=== PATIENT | female | born 1955 | race Caucasian/White ===

== ENCOUNTER 2020-06-14 10:30 | Outpatient (RCR) | payer MEDICARE, SELFPAY ==
[2020-05-24 10:33] VITALS: BP 156/90; PULSE 87; RESP 18; TEMP 36.6; BMI 53.8
--- NOTE | 2020-05-24 11:05 | PCM.WC.HP ---
(1) Traumatic open wound of left lower leg Status: Acute Current Visit: Yes Qualifiers: Encounter type: initial encounter Qualified Code(s): S81.802A - Unspecified open wound, left lower leg, initial encounter Code(s): S81.802A - Unspecified open wound, left lower leg, initial encounter (2) Traumatic hematoma of left lower leg Status: Acute Current Visit: Yes Qualifiers: Encounter type: initial encounter Qualified Code(s): S80.12XA - Contusion of left lower leg, initial encounter Code(s): S80.12XA - Contusion of left lower leg, initial encounter (3) Rheumatoid arthritis Status: Acute Current Visit: Yes Qualifiers: Rheumatoid arthritis location: unspecified site Code(s): M06.9 - Rheumatoid arthritis, unspecified (4) Nonhealing nonsurgical wound Status: Acute Current Visit: Yes Code(s): T14.8XXA - Other injury of unspecified body region, initial encounter (5) Morbid obesity Status: Acute Current Visit: Yes Code(s): E66.01 - Morbid (severe) obesity due to excess calories (6) Cellulitis of left lower extremity without foot Status: Acute Current Visit: Yes Code(s): L03.116 - Cellulitis of left lower limb (7) Edema of left lower leg Status: Acute Current Visit: Yes Code(s): R60.0 - Localized edema History of Present Illness Date of Service: 05/24/20 Chief Complaint: Follow-up open wound left lower leg History of Wound: 64-year-old white female that was pushing a chair and the chair hit her left lynch area about 5 weeks ago. Developed a huge hematoma and then blistering around with some cellulitis. Seen by her family doctor and they opened the hematoma and all the blisters. Patient was started on Augmentin and covered with gauze. Patient is here because wound is not healing properly Past Medical History Past Medical History: Rheumatoid arthritis hypertension morbid obesity Allergies/Adverse Reactions: Allergies No Known Allergies Allergy (Verified 05/24/20 10:23) Home Medications: Ambulatory Orders Medication Instructions Recorded Celecoxib [Celebrex] 200 mg PO DAILY 05/24/20 Esomeprazole Mag Trihydrate 20 mg PO DAILY 05/24/20 [Nexium] Folic Acid 1 mg PO DAILY 05/24/20 Furosemide [Lasix] 20 mg PO DAILY 05/24/20 Hydrochlorothiazide [Hctz] 25 mg PO DAILY 05/24/20 Hydroxychloroquine [Plaquenil] 200 mg PO DAILYCM 05/24/20 Lisinopril 5 mg PO DAILY 05/24/20 Methotrexate 2.5 mg PO Q7D 05/24/20 Review of Systems Constitutional: Denies: Chills, Fever Eyes: Denies: Blurred vision, Drainage, Pain HEENT: Denies: Difficulty Hearing, Difficulty Swallowing, Sore Throat, Visual Changes Cardiovascular: Denies: Chest Pain, Palpitations, Syncope Respiratory: Denies: Cough, Shortness of Breath Gastrointestinal: Denies: Abdominal Pain, Nausea, Vomiting Genitourinary: Denies: Dysuria, Frequency Musculoskeletal: Denies: Joint Pain, Muscle pain Skin: Reports: - - Left lower leg wound. Denies: Jaundice, Rash Neurological: Denies: Balance problems, Change in Speech, Difficulty swallowing, Focal weakness Psychiatric: Denies: Anxiety, Depression Endocrine: Denies: Change in Body Habitus Hematologic/ Lymphatic: Denies: Adenopathy - Physical Exam Vital Signs Temp Pulse Resp BP 98 F 87 18 156/90 H 05/24/20 10:33 05/24/20 10:33 05/24/20 10:33 05/24/20 10:33 General: Oriented x3, Cooperative, Well developed HEENT: Atraumatic, PERRLA Oral: Moist Mucosa Neck: Supple, No JVD Lungs: Clear to auscultation, Normal air movement Cardiovascular: Regular rate, Regular Rhythm Abdomen: Bowel Sounds Present, Soft, Non Tender, No Hepato-splenomegaly Extremities: No clubbing, Edema Skin: Ulcer/ Wound - Left lower lynch wound due to emetic hematoma that was opened by family doctor now open wound with a satellite open wound area, Rash Present Wound Measurements and Assessment WC - Nurse 1 - General Ulcer Measurement Start: 05/24/20 10:22 Freq: Status: Active Protocol: Activity Type Activity Date Activity User E-Sign Co-Sign Detail Recorded Client Recorded Date Recorded By Document 05/24/20 10:33 RB [id number] 05/24/20 10:37 RB 05/24/20 10:33 Wound Center Nurse 1 [Ulcer Assessment] 1. L lynch -Combined with other wound No -Current Size (cm) - Length 6 -Current Size (cm) - Width 5.4 -Current Size (cm) - Depth 0.2 -Total Square Cm 32.4 -Photo Taken Yes -Tunneling No -Undermining/Tunneling No -Circular Undermining No -Exudate Amt Small -Exudate Type Serosanguineous -Wound Margin Flat & Intact -Granulation Amt Medium (34-66%) -Granulation Quality Red -Slough/Fibrin Yes -Necrosis Amt Medium (34-66%) -Necrotic Tissue Type Adherent Slough -Structure Exposed N/A -Texture (Geraldine-wound Skin Appearance) Assessed -Moisture (Geraldine-wound Skin Appearance Assessed ) -Color (Geraldine-wound Skin Appearance) Hemosiderin Staining -Temperature (Geraldine-wound Skin No Abnormality Appearance) (Pt Warm) -Tenderness on Palpation (Geraldine-wound No Skin Appearance) -Ulcer Cleansing Wound Cleanser -Foul Odor after Cleansing No -Anesthetic Used 4% Lidocaine Solution [Edema Assessment] -Lower Limb Edema Present Yes -Right Calf (cm) 45 -Right Ankle (cm) 28 -Left Calf (cm) 49.5 -Left Ankle (cm) 30.2 WC - Nurse 2 - General Ulcer CM Notes Start: 05/24/20 10:22 Freq: Status: Active Protocol: Activity Type Activity Date Activity User E-Sign Co-Sign Detail Recorded Client Recorded Date Recorded By Document 05/24/20 10:48 MW [id number] 05/24/20 10:53 MW 05/24/20 10:48 Wound Center Nurse 2 [Procedure/Treatment] 1. L lynch -Time 10:50 -Correct Patient Yes -Correct Side, Site, Position Yes -Correct Procedure Yes -Procedure Performed Yes -Type of Procedure Debridement -Clinical Debridement Subcutaneous -Post Debridement Size (cm) - Length 6.2 -Post Debridement Size (cm) - Width 5.2 -Post Debridement Size (cm) - Depth 0.3 -Total Square Cm 32.24 -Wound/Ulcer Outcome Not Healed -Ulcer Cleansing Rinsed/ Irrigated with Saline -Foul Odor after Cleansing No -Bioengineered Tissue No -Bleeding Controlled with Pressure -Offloading No -Treatment Response Procedure Tolerated Well [See Physician Procedure note for Specifics] Pain Scale: 0-10 Numeric [Pain] -Is Patient Pain Free? Yes Musculoskeletal: No Tenderness to Palpation of Joints or Extremities Lymphatic: No Cervical, Supraclavicular, or Inguinal Adenopathy Neurological: Cranial nerves II-XII grossly intact, Neuro grossly intact Psych/Mental Status: Normal Affect, Appropriate Debridement Note Post-Debridement Measurements/Treatment WC - Nurse 2 - General Ulcer CM Notes Start: 05/24/20 10:22 Freq: Status: Active Protocol: Activity Type Activity Date Activity User E-Sign Co-Sign Detail Recorded Client Recorded Date Recorded By Document 05/24/20 10:48 MW [id number] 05/24/20 10:53 MW 05/24/20 10:48 Wound Center Nurse 2 1. L lynch -Time 10:50 -Correct Patient Yes -Correct Side, Site, Position Yes -Correct Procedure Yes -Procedure Performed Yes -Type of Procedure Debridement -Clinical Debridement Subcutaneous -Post Debridement Size (cm) - Length 6.2 -Post Debridement Size (cm) - Width 5.2 -Post Debridement Size (cm) - Depth 0.3 -Total Square Cm 32.24 -Wound/Ulcer Outcome Not Healed -Ulcer Cleansing Rinsed/ Irrigated with Saline -Foul Odor after Cleansing No -Bioengineered Tissue No -Bleeding Controlled with Pressure -Offloading No -Treatment Response Procedure Tolerated Well Pain Scale: 0-10 Numeric Is Patient Pain Free? Yes Wound debrided: Left lynch wound cluster Type of Debridement: Excisional debridement Anesthesia Used: 5% Lidocaine Gel Depth: Down to and including healthy tissue, in the subcutaneous layer Percentage of wound debrided: 100 Instrument Used: 7mm curette Tissue Removed: Slough and fibrin and devitalized tissue Severity: Limited To Skin Breakdown Amount of bleeding with debridement: Mild Bleeding Controlled with: Compression and gauze Patient tolerated procedure well Assessment/Plan Aerobic and anaerobic cultures obtained Active Problems Traumatic open wound of left lower leg (Acute) Traumatic hematoma of left lower leg (Acute) Rheumatoid arthritis (Acute) Nonhealing nonsurgical wound (Acute) Morbid obesity (Acute) Cellulitis of left lower extremity without foot (Acute) Edema of left lower leg (Acute) Assessment: Traumatic hematoma with blisters. Nonhealing open wound. Morbid obesity. Rheumatoid arthritis. Infected wound. Cellulitis Plan: Wash leg with antibacterial soap clean toes and toenails well. Aquacel extra to wound base moistened cover with Adaptic gauze tape. Apply Nestor wrap to left lower leg from toes to knee. We will call with results of cultures. Follow-up in 1 week
[2020-05-31 10:25] VITALS: BP 143/62; PULSE 90; RESP 18; TEMP 36.6; BMI 53.8
--- NOTE | 2020-05-31 11:43 | PCM.WC.PN ---
(1) Traumatic open wound of left lower leg Status: Acute Current Visit: Yes Qualifiers: Encounter type: initial encounter Qualified Code(s): S81.802A - Unspecified open wound, left lower leg, initial encounter Code(s): S81.802A - Unspecified open wound, left lower leg, initial encounter (2) Traumatic hematoma of left lower leg Status: Acute Current Visit: Yes Qualifiers: Encounter type: subsequent encounter Qualified Code(s): S80.12XD - Contusion of left lower leg, subsequent encounter Code(s): S80.12XA - Contusion of left lower leg, initial encounter (3) Rheumatoid arthritis Status: Acute Current Visit: Yes Qualifiers: Rheumatoid arthritis location: unspecified site Code(s): M06.9 - Rheumatoid arthritis, unspecified (4) Nonhealing nonsurgical wound Status: Acute Current Visit: Yes Code(s): T14.8XXA - Other injury of unspecified body region, initial encounter (5) Morbid obesity Status: Acute Current Visit: Yes Code(s): E66.01 - Morbid (severe) obesity due to excess calories (6) Cellulitis of left lower extremity without foot Status: Acute Current Visit: Yes Code(s): L03.116 - Cellulitis of left lower limb (7) Edema of left lower leg Status: Acute Current Visit: Yes Code(s): R60.0 - Localized edema Type of Wound Date of Service: 05/31/20 Chief Complaint: Follow-up open wound left lower leg History of Wound: 64-year-old white female that was pushing a chair and the chair hit her left lynch area about 5 weeks ago. Developed a huge hematoma and then blistering around with some cellulitis. Seen by her family doctor and they opened the hematoma and all the blisters. Patient was started on Augmentin and covered with gauze. Patient is here because wound is not healing properly Progress of Wound: Cultures came back staph aureus and anaerobes cocci so patient was started on clindamycin and metronidazole. Seeing an improvement tolerating her medications well. We will continue the Hydrofiber and Adaptic with gauze dressing compression and follow-up again in another week. - Physical Exam Vital Signs Temp Pulse Resp BP 97.9 F 90 18 143/62 H 05/31/20 10:25 05/31/20 10:25 05/31/20 10:25 05/31/20 10:25 General: Oriented x3, Cooperative, Well developed HEENT: Atraumatic, PERRLA Oral: Moist Mucosa Neck: Supple, No JVD Lungs: Clear to auscultation, Normal air movement Cardiovascular: Regular rate, Regular Rhythm Abdomen: Bowel Sounds Present, Soft, Non Tender, No Hepato-splenomegaly Extremities: No clubbing, No edema Skin: Ulcer/ Wound - Traumatic wound left lynch area Wound Measurements and Assessment WC - Nurse 1 - General Ulcer Measurement Start: 05/24/20 10:22 Freq: Status: Active Protocol: Activity Type Activity Date Activity User E-Sign Co-Sign Detail Recorded Client Recorded Date Recorded By Document 05/31/20 10:25 CS [id number] 05/31/20 10:33 CS 05/31/20 10:25 Wound Center Nurse 1 [Ulcer Assessment] 1. L lynch cluster -Combined with other wound No -Current Size (cm) - Length 6.5 -Current Size (cm) - Width 5.9 -Current Size (cm) - Depth 0.3 -Total Square Cm 38.35 -Photo Taken No -Epithelialization None Present -Tunneling No -Undermining/Tunneling No -Circular Undermining No -Exudate Amt Large -Exudate Type Serous -Wound Margin Distinct, Outline Attached -Granulation Amt Large (67-100%) -Granulation Quality Red -Slough/Fibrin Yes -Necrosis Amt None Present (0 %) -Necrotic Tissue Type Adherent Slough -Structure Exposed N/A -Texture (Geraldine-wound Skin Appearance) No Abnormality, Friable, Scarring -Moisture (Geraldine-wound Skin Appearance No Abnormality, ) Assessed -Color (Geraldine-wound Skin Appearance) Hemosiderin Staining -Temperature (Geraldine-wound Skin No Abnormality Appearance) (Pt Warm) -Tenderness on Palpation (Geraldine-wound No Skin Appearance) -Ulcer Cleansing Rinsed/ Irrigated with Saline -Foul Odor after Cleansing No -Anesthetic Used 4% Lidocaine Solution [Edema Assessment] -Lower Limb Edema Present Yes -Left Calf (cm) 45 -Left Ankle (cm) 28.5 WC - Nurse 2 - General Ulcer CM Notes Start: 05/24/20 10:22 Freq: Status: Active Protocol: Activity Type Activity Date Activity User E-Sign Co-Sign Detail Recorded Client Recorded Date Recorded By Document 05/31/20 10:44 MW [id number] 05/31/20 10:47 MW 05/31/20 10:44 Wound Center Nurse 2 [Procedure/Treatment] Linette lynch cluster -Time 10:46 -Correct Patient Yes -Correct Side, Site, Position Yes -Correct Procedure Yes -Procedure Performed Yes -Type of Procedure Debridement -Clinical Debridement Subcutaneous -Post Debridement Size (cm) - Length 6.2 -Post Debridement Size (cm) - Width 5.2 -Post Debridement Size (cm) - Depth 0.3 -Total Square Cm 32.24 -Wound/Ulcer Outcome Not Healed -Ulcer Cleansing Rinsed/ Irrigated with Saline -Foul Odor after Cleansing No -Bioengineered Tissue No -Bleeding Controlled with Pressure -Offloading No -Treatment Response Procedure Tolerated Well [See Physician Procedure note for Specifics] Pain Scale: 0-10 Numeric [Pain] -Is Patient Pain Free? Yes Musculoskeletal: No Tenderness to Palpation of Joints or Extremities Lymphatic: No Cervical, Supraclavicular, or Inguinal Adenopathy Neurological: Cranial nerves II-XII grossly intact, Neuro grossly intact Psych/Mental Status: Normal Affect, Appropriate Debridement Note Post-Debridement Measurements/Treatment WC - Nurse 2 - General Ulcer CM Notes Start: 05/24/20 10:22 Freq: Status: Active Protocol: Activity Type Activity Date Activity User E-Sign Co-Sign Detail Recorded Client Recorded Date Recorded By Document 05/24/20 10:48 MW [id number] 05/24/20 10:53 MW Document 05/31/20 10:44 MW [id number] 05/31/20 10:47 MW 05/24/20 05/31/20 10:48 10:44 Wound Center Nurse 2 Linette lynch cluster -Time 10:50 10:46 -Correct Patient Yes Yes -Correct Side, Site, Position Yes Yes -Correct Procedure Yes Yes -Procedure Performed Yes Yes -Type of Procedure Debridement Debridement -Clinical Debridement Subcutaneous Subcutaneous -Post Debridement Size (cm) - Length 6.2 6.2 -Post Debridement Size (cm) - Width 5.2 5.2 -Post Debridement Size (cm) - Depth 0.3 0.3 -Total Square Cm 32.24 32.24 -Wound/Ulcer Outcome Not Healed Not Healed -Ulcer Cleansing Rinsed/ Rinsed/ Irrigated with Irrigated with Saline Saline -Foul Odor after Cleansing No No -Bioengineered Tissue No No -Bleeding Controlled with Pressure Pressure -Offloading No No -Treatment Response Procedure Procedure Tolerated Well Tolerated Well Pain Scale: 0-10 Numeric Is Patient Pain Free? Yes Yes Wound debrided: Left lynch wound Type of Debridement: Excisional debridement Anesthesia Used: 5% Lidocaine Gel Depth: Down to and including healthy tissue, in the subcutaneous layer Percentage of wound debrided: 100 Instrument Used: 5mm curette Tissue Removed: Fibrin devitalized tissue some slough Severity: Limited To Skin Breakdown Amount of bleeding with debridement: Mild Bleeding Controlled with: Compression and gauze Patient tolerated procedure well Assessment/Plan Active Problems Traumatic open wound of left lower leg (Acute) Traumatic hematoma of left lower leg (Acute) Rheumatoid arthritis (Acute) Nonhealing nonsurgical wound (Acute) Morbid obesity (Acute) Cellulitis of left lower extremity without foot (Acute) Edema of left lower leg (Acute) Assessment: Traumatic hematoma with blisters. Nonhealing open wound. Morbid obesity. Rheumatoid arthritis. Infected wound. Cellulitis Plan: Wash leg with antibacterial soap clean toes and toenails well. Fibrocol to wound base moistened cover with Adaptic gauze tape. Apply Nestor wrap to left lower leg from toes to k. clinamycin 150 mg 3 times daily for 14 days. Metronidazole 250 mg ID for 14 days. Follow-up in 1 week
[2020-06-07 10:31] VITALS: BP 115/73; PULSE 92; RESP 20; TEMP 36.6; BMI 53.8
--- NOTE | 2020-06-07 12:05 | PCM.WC.PN ---
(1) Traumatic open wound of left lower leg Status: Acute Current Visit: Yes Qualifiers: Encounter type: initial encounter Qualified Code(s): S81.802A - Unspecified open wound, left lower leg, initial encounter Code(s): S81.802A - Unspecified open wound, left lower leg, initial encounter (2) Traumatic hematoma of left lower leg Status: Acute Current Visit: Yes Qualifiers: Encounter type: subsequent encounter Qualified Code(s): S80.12XD - Contusion of left lower leg, subsequent encounter Code(s): S80.12XA - Contusion of left lower leg, initial encounter (3) Rheumatoid arthritis Status: Acute Current Visit: Yes Qualifiers: Rheumatoid arthritis location: unspecified site Code(s): M06.9 - Rheumatoid arthritis, unspecified (4) Nonhealing nonsurgical wound Status: Acute Current Visit: Yes Code(s): T14.8XXA - Other injury of unspecified body region, initial encounter (5) Morbid obesity Status: Acute Current Visit: Yes Code(s): E66.01 - Morbid (severe) obesity due to excess calories (6) Cellulitis of left lower extremity without foot Status: Acute Current Visit: Yes Code(s): L03.116 - Cellulitis of left lower limb (7) Edema of left lower leg Status: Acute Current Visit: Yes Code(s): R60.0 - Localized edema Type of Wound Date of Service: 06/07/20 Chief Complaint: Follow-up open wound left lower leg History of Wound: 64-year-old white female that was pushing a chair and the chair hit her left lynch area about 5 weeks ago. Developed a huge hematoma and then blistering around with some cellulitis. Seen by her family doctor and they opened the hematoma and all the blisters. Patient was started on Augmentin and covered with gauze. Patient is here because wound is not healing properly Progress of Wound: Cultures came back staph aureus and anaerobes cocci so patient was started on clindamycin and metronidazole. Seeing an improvement tolerating her medications well. We will continue the Hydrofiber and Adaptic with gauze dressing compression and follow-up again in another week. - Physical Exam Vital Signs Temp Pulse Resp BP 98 F 92 20 H 115/73 06/07/20 10:31 06/07/20 10:31 06/07/20 10:31 06/07/20 10:31 General: Oriented x3, Cooperative, Well developed HEENT: Atraumatic, PERRLA Oral: Moist Mucosa Neck: Supple, No JVD Lungs: Clear to auscultation, Normal air movement Cardiovascular: Regular rate, Regular Rhythm Abdomen: Bowel Sounds Present, Soft, Non Tender, No Hepato-splenomegaly Extremities: No clubbing, No edema Skin: Ulcer/ Wound - Left lynch wound Wound Measurements and Assessment WC - Nurse 1 - General Ulcer Measurement Start: 05/24/20 10:22 Freq: Status: Active Protocol: Activity Type Activity Date Activity User E-Sign Co-Sign Detail Recorded Client Recorded Date Recorded By Document 06/07/20 10:31 [facility] [id number] 06/07/20 10:49 [facility] 06/07/20 10:31 Wound Center Nurse 1 [Ulcer Assessment] 1. L lynch cluster -Combined with other wound No -Current Size (cm) - Length 5.5 -Current Size (cm) - Width 4.6 -Current Size (cm) - Depth 0.4 -Total Square Cm 25.30 -Photo Taken No -Epithelialization Small 1-33% -Tunneling No -Undermining/Tunneling No -Circular Undermining No -Exudate Amt Medium -Exudate Type Serosanguineous -Wound Margin Distinct, Outline Attached -Granulation Amt Large (67-100%) -Granulation Quality Red -Slough/Fibrin Yes -Necrosis Amt Small (1-33%) -Texture (Geraldine-wound Skin Appearance) Assessed, Scarring -Moisture (Geraldine-wound Skin Appearance Assessed ) -Color (Geraldine-wound Skin Appearance) Assessed, Erythema -Temperature (Geraldine-wound Skin No Abnormality Appearance) (Pt Warm) -Tenderness on Palpation (Geraldine-wound No Skin Appearance) -Ulcer Cleansing Rinsed/ Irrigated with Saline -Foul Odor after Cleansing No -Anesthetic Used 5% Lidocaine Gel [Edema Assessment] -Lower Limb Edema Present Yes -Left Calf (cm) 49 -Left Ankle (cm) 28.6 - Nurse 2 - General Ulcer CM Notes Start: 05/24/20 10:22 Freq: Status: Active Protocol: Activity Type Activity Date Activity User E-Sign Co-Sign Detail Recorded Client Recorded Date Recorded By Document 06/07/20 11:00 [id number] 06/07/20 11:04 PL 06/07/20 11:00 Wound Center Nurse 2 [Procedure/Treatment] Linette lynch cluster -Time 10:59 -Correct Patient Yes -Correct Side, Site, Position Yes -Correct Procedure Yes -Procedure Performed Yes -Type of Procedure Debridement -Clinical Debridement Subcutaneous -Post Debridement Size (cm) - Length 5.3 -Post Debridement Size (cm) - Width 4.5 -Post Debridement Size (cm) - Depth 0.3 -Total Square (cm) 23.85 -Wound/Ulcer Outcome Not Healed -Ulcer Cleansing Rinsed/ Irrigated with Saline -Foul Odor after Cleansing No -Bleeding Controlled with Pressure -Treatment Response Procedure Tolerated Well [See Physician Procedure note for Specifics] Pain Scale: 0-10 Numeric [Pain] -Is Patient Pain Free? Yes Musculoskeletal: No Tenderness to Palpation of Joints or Extremities Lymphatic: No Cervical, Supraclavicular, or Inguinal Adenopathy Neurological: Cranial nerves II-XII grossly intact, Neuro grossly intact Psych/Mental Status: Normal Affect, Appropriate Debridement Note Post-Debridement Measurements/Treatment WC - Nurse 2 - General Ulcer CM Notes Start: 05/24/20 10:22 Freq: Status: Active Protocol: Activity Type Activity Date Activity User E-Sign Co-Sign Detail Recorded Client Recorded Date Recorded By Document 05/24/20 10:48 MW [id number] 05/24/20 10:53 MW Document 05/31/20 10:44 MW [id number] 05/31/20 10:47 MW Document 06/07/20 11:00 [id number] 06/07/20 11:04 05/24/20 05/31/20 06/07/20 10:48 10:44 11:00 Wound Center Nurse 2 Linette lynch cluster -Time 10:50 10:46 10:59 -Correct Patient Yes Yes Yes -Correct Side, Site, Position Yes Yes Yes -Correct Procedure Yes Yes Yes -Procedure Performed Yes Yes Yes -Type of Procedure Debridement Debridement Debridement -Clinical Debridement Subcutaneous Subcutaneous Subcutaneous -Post Debridement Size (cm) - Length 6.2 6.2 5.3 -Post Debridement Size (cm) - Width 5.2 5.2 4.5 -Post Debridement Size (cm) - Depth 0.3 0.3 0.3 -Total Square (cm) 32.24 32.24 23.85 -Wound/Ulcer Outcome Not Healed Not Healed Not Healed -Ulcer Cleansing Rinsed/ Rinsed/ Rinsed/ Irrigated with Irrigated with Irrigated with Saline Saline Saline -Foul Odor after Cleansing No No No -Bioengineered Tissue No No -Bleeding Controlled with Pressure Pressure Pressure -Offloading No No -Treatment Response Procedure Procedure Procedure Tolerated Well Tolerated Well Tolerated Well Pain Scale: 0-10 Numeric Is Patient Pain Free? Yes Yes Yes Wound debrided: Lynch wound Type of Debridement: Excisional debridement Anesthesia Used: 5% Lidocaine Gel Depth: Down to and including healthy tissue, in the subcutaneous layer Percentage of wound debrided: 100 Instrument Used: 5mm curette Tissue Removed: Fibrin and slough Severity: Limited To Skin Breakdown Amount of bleeding with debridement: Mild Bleeding Controlled with: Compression and gauze Patient tolerated procedure well Assessment/Plan Active Problems Traumatic open wound of left lower leg (Acute) Traumatic hematoma of left lower leg (Acute) Rheumatoid arthritis (Acute) Nonhealing nonsurgical wound (Acute) Morbid obesity (Acute) Cellulitis of left lower extremity without foot (Acute) Edema of left lower leg (Acute) Assessment: Traumatic hematoma with blisters. Nonhealing open wound. Morbid obesity. Rheumatoid arthritis. Infected wound. Cellulitis Plan: Wash leg with antibacterial soap clean toes and toenails well. Fibrocol to wound base moistened cover with Adaptic gauze tape. Apply Nestor wrap to left lower leg from toes to knees. Continue clinamycin 150 mg 3 times daily for 14 days. Continue metronidazole 250 mg ID for 14 days. Follow-up in 1 week
[2020-06-14 10:35] VITALS: BP 154/50; PULSE 89; RESP 18; TEMP 35.8; BMI 53.8
--- NOTE | 2020-06-14 11:23 | PCM.WC.PN ---
(1) Traumatic open wound of left lower leg Status: Acute Current Visit: Yes Qualifiers: Encounter type: subsequent encounter Qualified Code(s): S81.802D - Unspecified open wound, left lower leg, subsequent encounter Code(s): S81.802A - Unspecified open wound, left lower leg, initial encounter (2) Traumatic hematoma of left lower leg Status: Acute Current Visit: Yes Qualifiers: Encounter type: subsequent encounter Qualified Code(s): S80.12XD - Contusion of left lower leg, subsequent encounter Code(s): S80.12XA - Contusion of left lower leg, initial encounter (3) Rheumatoid arthritis Status: Acute Current Visit: Yes Qualifiers: Rheumatoid arthritis location: unspecified site Code(s): M06.9 - Rheumatoid arthritis, unspecified (4) Nonhealing nonsurgical wound Status: Acute Current Visit: Yes Code(s): T14.8XXA - Other injury of unspecified body region, initial encounter (5) Morbid obesity Status: Acute Current Visit: Yes Code(s): E66.01 - Morbid (severe) obesity due to excess calories (6) Cellulitis of left lower extremity without foot Status: Acute Current Visit: Yes Code(s): L03.116 - Cellulitis of left lower limb (7) Edema of left lower leg Status: Acute Current Visit: Yes Code(s): R60.0 - Localized edema (8) Chronic wound of extremity Status: Chronic Current Visit: Yes Type of Wound Date of Service: 06/14/20 Chief Complaint: Follow-up open wound left lower leg History of Wound: 64-year-old white female that was pushing a chair and the chair hit her left lynch area about 5 weeks ago. Developed a huge hematoma and then blistering around with some cellulitis. Seen by her family doctor and they opened the hematoma and all the blisters. Patient was started on Augmentin and covered with gauze. Patient is here because wound is not healing properly Progress of Wound: Cultures came back staph aureus and anaerobes cocci so patient was started on clindamycin and metronidazole. Seeing an improvement tolerating her medications well. We will continue the Hydrofiber and Adaptic with gauze dressing compression and follow-up again in another week. Planning for epi-fix to finish her off she still has some depth that we can seem to fill in with using the Hydrofiber. - Physical Exam Vital Signs Temp Pulse Resp BP 96.5 F L 89 18 154/50 H 06/14/20 10:35 06/14/20 10:35 06/14/20 10:35 06/14/20 10:35 General: Oriented x3, Cooperative, Well developed HEENT: Atraumatic, PERRLA Oral: Moist Mucosa Neck: Supple, No JVD Lungs: Clear to auscultation, Normal air movement Cardiovascular: Regular rate, Regular Rhythm Abdomen: Bowel Sounds Present, Soft, Non Tender, No Hepato-splenomegaly Extremities: No clubbing, No edema, Edema, - - Contusions lower extremities fading Skin: Ulcer/ Wound - Large open wound over 2 months old left lower anterior lynch Wound Measurements and Assessment WC - Nurse 1 - General Ulcer Measurement Start: 05/24/20 10:22 Freq: Status: Active Protocol: Activity Type Activity Date Activity User E-Sign Co-Sign Detail Recorded Client Recorded Date Recorded By Document 06/14/20 10:35 [id number] 06/14/20 10:50 RB 06/14/20 10:35 Wound Center Nurse 1 [Ulcer Assessment] 1. L lynch cluster -Combined with other wound No -Current Size (cm) - Length 3.8 -Current Size (cm) - Width 3.6 -Current Size (cm) - Depth 0.3 -Total Square Cm 13.68 -Tunneling No -Undermining/Tunneling No -Circular Undermining No -Exudate Amt Medium -Exudate Type Serosanguineous -Wound Margin Flat & Intact -Granulation Amt Medium (34-66%) -Granulation Quality [place] -Slough/Fibrin Yes -Necrosis Amt Small (1-33%) -Necrotic Tissue Type Adherent Slough -Structure Exposed N/A -Texture (Geraldine-wound Skin Appearance) Assessed, Scarring -Moisture (Geraldine-wound Skin Appearance Assessed ) -Color (Geraldine-wound Skin Appearance) Assessed -Temperature (Geraldine-wound Skin No Abnormality Appearance) (Pt Warm) -Tenderness on Palpation (Geraldine-wound No Skin Appearance) -Ulcer Cleansing Wound Cleanser -Foul Odor after Cleansing No -Anesthetic Used 5% Lidocaine Gel [Edema Assessment] -Lower Limb Edema Present Yes -Left Calf (cm) 49.5 -Left Ankle (cm) 29.5 WC - Nurse 2 - General Ulcer CM Notes Start: 05/24/20 10:22 Freq: Status: Active Protocol: Activity Type Activity Date Activity User E-Sign Co-Sign Detail Recorded Client Recorded Date Recorded By Document 06/14/20 11:03 MW [id number] 06/14/20 11:05 MW 06/14/20 11:03 Wound Center Nurse 2 [Procedure/Treatment] Linette lynch cluster -Time 11:05 -Correct Patient Yes -Correct Side, Site, Position Yes -Correct Procedure Yes -Procedure Performed Yes -Type of Procedure Debridement -Clinical Debridement Subcutaneous -Post Debridement Size (cm) - Length 3.7 -Post Debridement Size (cm) - Width 3.7 -Post Debridement Size (cm) - Depth 0.2 -Total Square (cm) 13.69 -Wound/Ulcer Outcome Not Healed -Ulcer Cleansing Rinsed/ Irrigated with Saline -Foul Odor after Cleansing No -Bioengineered Tissue No -Bleeding Controlled with Pressure -Offloading No -Treatment Response Procedure Tolerated Well [See Physician Procedure note for Specifics] Pain Scale: 0-10 Numeric [Pain] -Is Patient Pain Free? Yes Musculoskeletal: No Tenderness to Palpation of Joints or Extremities Lymphatic: No Cervical, Supraclavicular, or Inguinal Adenopathy Neurological: Cranial nerves II-XII grossly intact, Neuro grossly intact Psych/Mental Status: Normal Affect, Appropriate Debridement Note Post-Debridement Measurements/Treatment WC - Nurse 2 - General Ulcer CM Notes Start: 05/24/20 10:22 Freq: Status: Active Protocol: Activity Type Activity Date Activity User E-Sign Co-Sign Detail Recorded Client Recorded Date Recorded By Document 05/24/20 10:48 MW [id number] 05/24/20 10:53 MW Document 05/31/20 10:44 MW [id number] 05/31/20 10:47 MW Document 06/07/20 11:00 PL [id number] 06/07/20 11:04 PL Document 06/14/20 11:03 MW [id number] 06/14/20 11:05 MW 05/24/20 05/31/20 06/07/20 10:48 10:44 11:00 Wound Center Nurse 2 Linette lynch cluster -Time 10:50 10:46 10:59 -Correct Patient Yes Yes Yes -Correct Side, Site, Position Yes Yes Yes -Correct Procedure Yes Yes Yes -Procedure Performed Yes Yes Yes -Type of Procedure Debridement Debridement Debridement -Clinical Debridement Subcutaneous Subcutaneous Subcutaneous -Post Debridement Size (cm) - Length 6.2 6.2 5.3 -Post Debridement Size (cm) - Width 5.2 5.2 4.5 -Post Debridement Size (cm) - Depth 0.3 0.3 0.3 -Total Square (cm) 32.24 32.24 23.85 -Wound/Ulcer Outcome Not Healed Not Healed Not Healed -Ulcer Cleansing Rinsed/ Rinsed/ Rinsed/ Irrigated with Irrigated with Irrigated with Saline Saline Saline -Foul Odor after Cleansing No No No -Bioengineered Tissue No No -Bleeding Controlled with Pressure Pressure Pressure -Offloading No No -Treatment Response Procedure Procedure Procedure Tolerated Well Tolerated Well Tolerated Well Pain Scale: 0-10 Numeric Is Patient Pain Free? Yes Yes Yes 06/14/20 11:03 Wound Center Nurse 2 Linette lynch cluster -Time 11:05 -Correct Patient Yes -Correct Side, Site, Position Yes -Correct Procedure Yes -Procedure Performed Yes -Type of Procedure Debridement -Clinical Debridement Subcutaneous -Post Debridement Size (cm) - Length 3.7 -Post Debridement Size (cm) - Width 3.7 -Post Debridement Size (cm) - Depth 0.2 -Total Square (cm) 13.69 -Wound/Ulcer Outcome Not Healed -Ulcer Cleansing Rinsed/ Irrigated with Saline -Foul Odor after Cleansing No -Bioengineered Tissue No -Bleeding Controlled with Pressure -Offloading No -Treatment Response Procedure Tolerated Well Pain Scale: 0-10 Numeric Is Patient Pain Free? Yes Wound debrided: Left anterior lynch chronic wound Type of Debridement: Excisional debridement Anesthesia Used: 5% Lidocaine Gel Depth: Down to and including healthy tissue Percentage of wound debrided: 100 Instrument Used: 7mm curette Tissue Removed: Fibrin Severity: Limited To Skin Breakdown Amount of bleeding with debridement: Mild Bleeding Controlled with: Compression and gauze Patient tolerated procedure well Assessment/Plan Active Problems Traumatic open wound of left lower leg (Acute) Traumatic hematoma of left lower leg (Acute) Rheumatoid arthritis (Acute) Nonhealing nonsurgical wound (Acute) Morbid obesity (Acute) Cellulitis of left lower extremity without foot (Acute) Edema of left lower leg (Acute) Chronic wound of extremity (Chronic) Assessment: Chronic traumatic hematoma with blisters. Chronic nonhealing open wound. Morbid obesity. Rheumatoid arthritis. Infected wound. Cellulitis Plan: Wash leg with antibacterial soap clean toes and toenails well. Fibrocol to wound base moistened cover with Adaptic gauze tape. Apply Nestor wrap to left lower leg from toes to knees. Applying for epi-fix. Follow-up in 1 week
== END 2020-06-16 23:59 ==
LOC: WC 10:30
PROVIDERS: PCP Internal Medicine; Referring Provider Nurse Practitioner; Visit Provider Nurse Practitioner
DX: S81.802A Unspecified open wound, left lower leg, initial encounter (principal); S80.12XA Contusion of left lower leg, initial encounter; W22.03XA Walked into furniture, initial encounter; Y92.9 Unspecified place or not applicable; Y99.9 Unspecified external cause status; L03.116 Cellulitis of left lower limb; M06.9 Rheumatoid arthritis, unspecified; I10 Essential (primary) hypertension; E66.01 Morbid (severe) obesity due to excess calories; R60.0 Localized edema; Z79.1 Long term (current) use of non-steroidal anti-inflammatories (NSAID); Z79.899 Other long term (current) drug therapy
CPT/HCPCS: 11042; 11045; 87070; 87075; 87077; 87186; 87205; 99203; G0463

== ENCOUNTER 2020-07-05 10:30 | Outpatient (RCR) | payer MEDICARE, SELFPAY ==
[2020-06-17 00:38] VITALS: BP 154/50; PULSE 89; RESP 18; TEMP 35.8
[2020-06-21 10:36] VITALS: BP 137/57; PULSE 88; RESP 18; TEMP 36.3; BMI 53.8
--- NOTE | 2020-06-21 10:50 | PN.PCM_ITS ---
(1) Edema of left lower leg Status: Acute Current Visit: Yes Code(s): R60.0 - Localized edema (2) Morbid obesity Status: Acute Current Visit: Yes Code(s): E66.01 - Morbid (severe) obesity due to excess calories (3) Nonhealing nonsurgical wound Status: Acute Current Visit: Yes Code(s): T14.8XXA - Other injury of unspecified body region, initial encounter (4) Rheumatoid arthritis Status: Acute Current Visit: Yes Code(s): M06.9 - Rheumatoid arthritis, unspecified (5) Traumatic open wound of left lower leg Status: Acute Current Visit: Yes Qualifiers: Code(s): S81.802A - Unspecified open wound, left lower leg, initial encounter Type of Wound Date of Service: 06/21/20 Chief Complaint: Follow-up open wound left lower leg History of Wound: 64-year-old white female that was pushing a chair and the chair hit her left lynch area about 5 weeks ago. Developed a huge hematoma and then blistering around with some cellulitis. Seen by her family doctor and they opened the hematoma and all the blisters. Patient was started on Augmentin and covered with gauze. Patient is here because wound is not healing properly Progress of Wound: Cultures came back staph aureus and anaerobes cocci so patient was started on clindamycin and metronidazole. Seeing an improvement tolerating her medications well. We will use Fibracol and Adaptic with gauze dressing compression and follow-up again in another week. - Physical Exam Vital Signs Temp Pulse Resp BP 97.3 F L 88 18 137/57 H 06/21/20 10:36 06/21/20 10:36 06/21/20 10:36 06/21/20 10:36 General: Oriented x3, Cooperative, Well developed HEENT: Atraumatic, PERRLA Oral: Moist Mucosa Neck: Supple, No JVD Lungs: Clear to auscultation, Normal air movement Cardiovascular: Regular rate, Regular Rhythm Abdomen: Bowel Sounds Present, Soft, Non Tender, No Hepato-splenomegaly Extremities: No clubbing, Edema Skin: Ulcer/ Wound - Left lynch trauma open much smaller Wound Measurements and Assessment WC - Nurse 1 - General Ulcer Measurement Start: 06/21/20 10:35 Freq: Status: Active Protocol: Activity Type Activity Date Activity User E-Sign Co-Sign Detail Recorded Client Recorded Date Recorded By Document 06/21/20 10:36 RB [id number] 06/21/20 10:38 RB 06/21/20 10:36 Wound Center Nurse 1 [Ulcer Assessment] Linette Mata lynch cluster -Combined with other wound No -Current Size (cm) - Length 2.3 -Current Size (cm) - Width 3.4 -Current Size (cm) - Depth 0.2 -Total Square Cm 7.82 -Photo Taken Yes -Tunneling No -Undermining/Tunneling No -Circular Undermining No -Exudate Amt Medium -Exudate Type Serosanguineous -Wound Margin Flat & Intact -Granulation Amt Medium (34-66%) -Granulation Quality [place] -Slough/Fibrin Yes -Necrosis Amt Small (1-33%) -Necrotic Tissue Type Adherent Slough -Structure Exposed N/A -Texture (Geraldine-wound Skin Appearance) Assessed -Moisture (Geraldine-wound Skin Appearance Assessed ) -Color (Geraldine-wound Skin Appearance) Assessed -Temperature (Geraldine-wound Skin No Abnormality Appearance) (Pt Warm) -Tenderness on Palpation (Geraldine-wound No Skin Appearance) -Ulcer Cleansing Wound Cleanser -Foul Odor after Cleansing No -Anesthetic Used 4% Lidocaine Solution [Edema Assessment] -Lower Limb Edema Present Yes -Left Calf (cm) 48.6 -Left Ankle (cm) 27.1 WC - Nurse 2 - General Ulcer CM Notes Start: 06/21/20 10:35 Freq: Status: Active Protocol: Activity Type Activity Date Activity User E-Sign Co-Sign Detail Recorded Client Recorded Date Recorded By Document 06/21/20 10:43 MW [id number] 06/21/20 10:45 MW 06/21/20 10:43 Wound Center Nurse 2 [Procedure/Treatment] Linette Mata lynch cluster -Time 10:44 -Correct Patient Yes -Correct Side, Site, Position Yes -Correct Procedure Yes -Procedure Performed Yes -Type of Procedure Debridement -Clinical Debridement Subcutaneous -Post Debridement Size (cm) - Length 2.5 -Post Debridement Size (cm) - Width 3.5 -Post Debridement Size (cm) - Depth 0.3 -Total Square (cm) 8.75 -Wound/Ulcer Outcome Not Healed -Ulcer Cleansing Rinsed/ Irrigated with Saline -Foul Odor after Cleansing No -Bioengineered Tissue No -Bleeding Controlled with Pressure -Offloading No -Treatment Response Procedure Tolerated Well [See Physician Procedure note for Specifics] Pain Scale: 0-10 Numeric [Pain] -Is Patient Pain Free? Yes Musculoskeletal: No Tenderness to Palpation of Joints or Extremities Lymphatic: No Cervical, Supraclavicular, or Inguinal Adenopathy Neurological: Cranial nerves II-XII grossly intact, Neuro grossly intact Psych/Mental Status: Normal Affect, Appropriate Debridement Note Post-Debridement Measurements/Treatment WC - Nurse 2 - General Ulcer CM Notes Start: 06/21/20 10:35 Freq: Status: Active Protocol: Activity Type Activity Date Activity User E-Sign Co-Sign Detail Recorded Client Recorded Date Recorded By Document 06/21/20 10:43 MW [id number] 06/21/20 10:45 MW 06/21/20 10:43 Wound Center Nurse 2 1. L lynch cluster -Time 10:44 -Correct Patient Yes -Correct Side, Site, Position Yes -Correct Procedure Yes -Procedure Performed Yes -Type of Procedure Debridement -Clinical Debridement Subcutaneous -Post Debridement Size (cm) - Length 2.5 -Post Debridement Size (cm) - Width 3.5 -Post Debridement Size (cm) - Depth 0.3 -Total Square (cm) 8.75 -Wound/Ulcer Outcome Not Healed -Ulcer Cleansing Rinsed/ Irrigated with Saline -Foul Odor after Cleansing No -Bioengineered Tissue No -Bleeding Controlled with Pressure -Offloading No -Treatment Response Procedure Tolerated Well Pain Scale: 0-10 Numeric Is Patient Pain Free? Yes Wound debrided: Left lynch wound Type of Debridement: Excisional debridement Anesthesia Used: 5% Lidocaine Gel Depth: in the subcutaneous layer Percentage of wound debrided: 100 Instrument Used: 5mm curette Tissue Removed: Slough and fibrin Severity: Fat Layer Exposed Amount of bleeding with debridement: Mild Bleeding Controlled with: Compression and gauze Patient tolerated procedure well Assessment/Plan Active Problems Traumatic open wound of left lower leg (Acute) Rheumatoid arthritis (Acute) Nonhealing nonsurgical wound (Acute) Morbid obesity (Acute) Edema of left lower leg (Acute) Assessment: Chronic traumatic hematoma with blisters. Chronic nonhealing open wound. Morbid obesity. Rheumatoid arthritis. Infected wound. Cellulitis Plan: Wash leg with antibacterial soap clean toes and toenails well. Fibrocol to wound base moistened cover with Adaptic gauze tape. Apply Nestor wrap to left lower leg from toes to knees. Applying for epi-fix too expensive with insurance . Follow-up in 1 week
[2020-06-28 10:29] VITALS: BP 157/76; PULSE 96; RESP 18; TEMP 35.7; BMI 53.8
--- NOTE | 2020-06-28 10:44 | PN.PCM_ITS ---
(1) Edema of left lower leg Status: Acute Current Visit: Yes Code(s): R60.0 - Localized edema (2) Morbid obesity Status: Acute Current Visit: Yes Code(s): E66.01 - Morbid (severe) obesity due to excess calories (3) Nonhealing nonsurgical wound Status: Acute Current Visit: Yes Code(s): T14.8XXA - Other injury of unspecified body region, initial encounter (4) Rheumatoid arthritis Status: Acute Current Visit: Yes Code(s): M06.9 - Rheumatoid arthritis, unspecified (5) Traumatic open wound of left lower leg Status: Acute Current Visit: Yes Qualifiers: Code(s): S81.802A - Unspecified open wound, left lower leg, initial encounter Type of Wound Date of Service: 06/28/20 Chief Complaint: Follow-up open wound left lower leg History of Wound: 64-year-old white female that was pushing a chair and the chair hit her left lynch area about 5 weeks ago. Developed a huge hematoma and then blistering around with some cellulitis. Seen by her family doctor and they opened the hematoma and all the blisters. Patient was started on Augmentin and covered with gauze. Patient is here because wound is not healing properly Progress of Wound: Cultures came back staph aureus and anaerobes cocci so patient was started on clindamycin and metronidazole. Seeing an improvement tolerating her medications well. We will use Fibracol and Adaptic with gauze dressing with good results continue compression and follow-up again in another week. - Physical Exam Vital Signs Temp Pulse Resp BP 96.2 F L 96 18 157/76 H 06/28/20 10:29 06/28/20 10:29 06/28/20 10:29 06/28/20 10:29 General: Oriented x3, Cooperative, Well developed HEENT: Atraumatic, PERRLA Oral: Moist Mucosa Neck: Supple, No JVD Lungs: Clear to auscultation, Normal air movement Cardiovascular: Regular rate, Regular Rhythm Abdomen: Bowel Sounds Present, Soft, Non Tender, No Hepato-splenomegaly Extremities: No clubbing, No edema Wound Measurements and Assessment WC - Nurse 1 - General Ulcer Measurement Start: 06/21/20 10:35 Freq: Status: Active Protocol: Activity Type Activity Date Activity User E-Sign Co-Sign Detail Recorded Client Recorded Date Recorded By Document 06/28/20 10:29 [facility] [id number] 06/28/20 10:32 BMF 06/28/20 10:29 Wound Center Nurse 1 [Ulcer Assessment] Linette lynch cluster -Combined with other wound No -Current Size (cm) - Length 2 -Current Size (cm) - Width 2.7 -Current Size (cm) - Depth 0.2 -Total Square Cm 5.4 -Photo Taken No -Epithelialization Small 1-33% -Tunneling No -Undermining/Tunneling No -Circular Undermining No -Exudate Amt Small -Exudate Type Serosanguineous -Wound Margin Distinct, Outline Attached -Granulation Amt Large (67-100%) -Granulation Quality Pale,Red -Slough/Fibrin Yes -Necrosis Amt Small (1-33%) -Necrotic Tissue Type Adherent Slough -Texture (Geraldine-wound Skin Appearance) Assessed, Scarring -Moisture (Geraldine-wound Skin Appearance Assessed ) -Color (Geraldine-wound Skin Appearance) Assessed -Temperature (Geraldine-wound Skin No Abnormality Appearance) (Pt Warm) -Tenderness on Palpation (Geraldine-wound No Skin Appearance) -Ulcer Cleansing soapy water -Foul Odor after Cleansing No -Anesthetic Used 5% Lidocaine Gel [Edema Assessment] -Lower Limb Edema Present Yes -Left Calf (cm) 48 -Left Ankle (cm) 27.1 WC - Nurse 2 - General Ulcer CM Notes Start: 06/21/20 10:35 Freq: Status: Active Protocol: Activity Type Activity Date Activity User E-Sign Co-Sign Detail Recorded Client Recorded Date Recorded By Document 06/28/20 10:41 MW [id number] 06/28/20 10:42 MW 06/28/20 10:41 Wound Center Nurse 2 [Procedure/Treatment] Linette lynch cluster -Time 10:41 -Correct Patient Yes -Correct Side, Site, Position Yes -Correct Procedure Yes -Procedure Performed Yes -Type of Procedure Debridement -Clinical Debridement Subcutaneous -Post Debridement Size (cm) - Length 1.9 -Post Debridement Size (cm) - Width 2.8 -Post Debridement Size (cm) - Depth 0.3 -Total Square (cm) 5.32 -Wound/Ulcer Outcome Not Healed -Ulcer Cleansing Rinsed/ Irrigated with Saline -Foul Odor after Cleansing No -Bioengineered Tissue No -Bleeding Controlled with Pressure -Offloading No -Treatment Response Procedure Tolerated Well [See Physician Procedure note for Specifics] Pain Scale: 0-10 Numeric [Pain] -Is Patient Pain Free? Yes Musculoskeletal: No Tenderness to Palpation of Joints or Extremities Lymphatic: No Cervical, Supraclavicular, or Inguinal Adenopathy Neurological: Cranial nerves II-XII grossly intact, Neuro grossly intact Psych/Mental Status: Normal Affect, Appropriate Debridement Note Post-Debridement Measurements/Treatment WC - Nurse 2 - General Ulcer CM Notes Start: 06/21/20 10:35 Freq: Status: Active Protocol: Activity Type Activity Date Activity User E-Sign Co-Sign Detail Recorded Client Recorded Date Recorded By Document 06/21/20 10:43 MW [id number] 06/21/20 10:45 MW Document 06/28/20 10:41 MW [id number] 06/28/20 10:42 MW 06/21/20 06/28/20 10:43 10:41 Wound Center Nurse 2 1. L lynch cluster -Time 10:44 10:41 -Correct Patient Yes Yes -Correct Side, Site, Position Yes Yes -Correct Procedure Yes Yes -Procedure Performed Yes Yes -Type of Procedure Debridement Debridement -Clinical Debridement Subcutaneous Subcutaneous -Post Debridement Size (cm) - Length 2.5 1.9 -Post Debridement Size (cm) - Width 3.5 2.8 -Post Debridement Size (cm) - Depth 0.3 0.3 -Total Square (cm) 8.75 5.32 -Wound/Ulcer Outcome Not Healed Not Healed -Ulcer Cleansing Rinsed/ Rinsed/ Irrigated with Irrigated with Saline Saline -Foul Odor after Cleansing No No -Bioengineered Tissue No No -Bleeding Controlled with Pressure Pressure -Offloading No No -Treatment Response Procedure Procedure Tolerated Well Tolerated Well Pain Scale: 0-10 Numeric Is Patient Pain Free? Yes Yes Wound debrided: Left lynch wound Type of Debridement: Excisional debridement Anesthesia Used: 5% Lidocaine Gel Depth: Down to and including healthy tissue, in the subcutaneous layer Percentage of wound debrided: 100 Instrument Used: 5mm curette Tissue Removed: Fibrin some slough Severity: Fat Layer Exposed Bleeding Controlled with: Compression and gauze Patient tolerated procedure well Assessment/Plan Active Problems Traumatic open wound of left lower leg (Acute) Rheumatoid arthritis (Acute) Nonhealing nonsurgical wound (Acute) Morbid obesity (Acute) Edema of left lower leg (Acute) Assessment: Chronic traumatic hematoma with blisters. Chronic nonhealing open wound. Morbid obesity. Rheumatoid arthritis. Infected wound. Cellulitis Plan: Wash leg with antibacterial soap clean toes and toenails well. Fibrocol to wound base moistened cover with Adaptic gauze tape. Apply Nestor wrap to left lower leg from toes to knees. Follow-up in 1 week
[2020-07-05 10:23] VITALS: BP 152/62; PULSE 94; RESP 18; TEMP 36.6; BMI 53.8
--- NOTE | 2020-07-05 10:40 | PCM.WC.PN ---
(1) Edema of left lower leg Status: Acute Current Visit: Yes Code(s): R60.0 - Localized edema (2) Morbid obesity Status: Acute Current Visit: Yes Code(s): E66.01 - Morbid (severe) obesity due to excess calories (3) Nonhealing nonsurgical wound Status: Acute Current Visit: Yes Code(s): T14.8XXA - Other injury of unspecified body region, initial encounter (4) Rheumatoid arthritis Status: Acute Current Visit: Yes Code(s): M06.9 - Rheumatoid arthritis, unspecified (5) Traumatic open wound of left lower leg Status: Acute Current Visit: Yes Qualifiers: Code(s): S81.802A - Unspecified open wound, left lower leg, initial encounter Type of Wound Date of Service: 07/05/20 Chief Complaint: Follow-up open wound left lower leg History of Wound: 64-year-old white female that was pushing a chair and the chair hit her left lynch area about 5 weeks ago. Developed a huge hematoma and then blistering around with some cellulitis. Seen by her family doctor and they opened the hematoma and all the blisters. Patient was started on Augmentin and covered with gauze. Patient is here because wound is not healing properly Progress of Wound: Cultures came back staph aureus and anaerobes cocci so patient was started on clindamycin and metronidazole. Seeing an improvement tolerating her medications well. We will change to Promogran to finish wound care, Adaptic with gauze dressing , continue compression and follow-up again in another week. - Physical Exam Vital Signs Temp Pulse Resp BP 97.9 F 94 18 152/62 H 07/05/20 10:23 07/05/20 10:23 07/05/20 10:23 07/05/20 10:23 General: Oriented x3, Cooperative, Well developed HEENT: Atraumatic, PERRLA Oral: Moist Mucosa Neck: Supple, No JVD Lungs: Clear to auscultation, Normal air movement Cardiovascular: Regular rate, Regular Rhythm Abdomen: Bowel Sounds Present, Soft, Non Tender, No Hepato-splenomegaly Extremities: No clubbing, No edema Skin: Ulcer/ Wound - Right medial lower leg wound from trauma Wound Measurements and Assessment WC - Nurse 1 - General Ulcer Measurement Start: 06/21/20 10:35 Freq: Status: Active Protocol: Activity Type Activity Date Activity User E-Sign Co-Sign Detail Recorded Client Recorded Date Recorded By Document 07/05/20 10:23 [facility] [id number] 07/05/20 10:28 BM 07/05/20 10:23 Wound Center Nurse 1 [Ulcer Assessment] Linette lynch cluster -Combined with other wound No -Current Size (cm) - Length 1.6 -Current Size (cm) - Width 2.3 -Current Size (cm) - Depth 0.4 -Total Square Cm 3.68 -Photo Taken No -Epithelialization Small 1-33% -Tunneling No -Undermining/Tunneling No -Circular Undermining No -Exudate Amt Small -Exudate Type Serosanguineous -Wound Margin Distinct, Outline Attached -Granulation Amt Large (67-100%) -Granulation Quality Red -Slough/Fibrin Yes -Necrosis Amt Small (1-33%) -Necrotic Tissue Type Adherent Slough -Texture (Geraldine-wound Skin Appearance) Assessed, Scarring -Moisture (Geraldine-wound Skin Appearance Assessed ) -Color (Geraldine-wound Skin Appearance) Assessed -Temperature (Geraldine-wound Skin No Abnormality Appearance) (Pt Warm) -Tenderness on Palpation (Geraldine-wound No Skin Appearance) -Ulcer Cleansing Rinsed/ Irrigated with Saline -Foul Odor after Cleansing No -Anesthetic Used 4% Lidocaine Solution [Edema Assessment] -Lower Limb Edema Present Yes -Left Calf (cm) 46.2 -Left Ankle (cm) 27 WC - Nurse 2 - General Ulcer CM Notes Start: 07/04/20 19:31 Freq: Status: Active Protocol: Activity Type Activity Date Activity User E-Sign Co-Sign Detail Recorded Client Recorded Date Recorded By Document 07/05/20 10:35 MW [id number] 07/05/20 10:37 MW 07/05/20 10:35 Wound Center Nurse 2 [Procedure/Treatment] Linette Mata lynch cluster -Time 10:35 -Correct Patient Yes -Correct Side, Site, Position Yes -Correct Procedure Yes -Procedure Performed Yes -Type of Procedure Debridement -Clinical Debridement Subcutaneous -Tissue Removed Subcutaneous -Post Debridement (cm) - Length 1.4 -Post Debridement (cm) - Width 2.2 -Post Debridement (cm) - Depth 0.3 -Total Square (Post) (cm) 3.08 -Area of Debridement (cm) - Length 1.4 -Area of Debridement (cm) - Width 2.4 -Total Square (Area) (cm) 3.36 -Tunneling No -Undermining/Tunneling No -Circular Undermining No -Ulcer Cleansing Rinsed/ Irrigated with Saline -Foul Odor after Cleansing No -Bioengineered Tissue No -Bleeding Controlled with Pressure -Offloading No -Debridement - Subq, 1st 20sq cm Yes [See Physician Procedure note for Specifics] Pain Scale: 0-10 Numeric [Pain] -Is Patient Pain Free? Yes Musculoskeletal: No Tenderness to Palpation of Joints or Extremities Lymphatic: No Cervical, Supraclavicular, or Inguinal Adenopathy Neurological: Cranial nerves II-XII grossly intact, Neuro grossly intact Psych/Mental Status: Normal Affect, Appropriate Debridement Note Post-Debridement Measurements/Treatment WC - Nurse 2 - General Ulcer CM Notes Start: 07/04/20 19:31 Freq: Status: Active Protocol: Activity Type Activity Date Activity User E-Sign Co-Sign Detail Recorded Client Recorded Date Recorded By Document 07/05/20 10:35 MW [id number] 07/05/20 10:37 MW 07/05/20 10:35 Wound Center Nurse 2 1. L lynch cluster -Time 10:35 -Correct Patient Yes -Correct Side, Site, Position Yes -Correct Procedure Yes -Procedure Performed Yes -Type of Procedure Debridement -Clinical Debridement Subcutaneous -Tissue Removed Subcutaneous -Post Debridement (cm) - Length 1.4 -Post Debridement (cm) - Width 2.2 -Post Debridement (cm) - Depth 0.3 -Total Square (Post) (cm) 3.08 -Area of Debridement (cm) - Length 1.4 -Area of Debridement (cm) - Width 2.4 -Total Square (Area) (cm) 3.36 -Tunneling No -Undermining/Tunneling No -Circular Undermining No -Ulcer Cleansing Rinsed/ Irrigated with Saline -Foul Odor after Cleansing No -Bioengineered Tissue No -Bleeding Controlled with Pressure -Offloading No -Debridement - Subq, 1st 20sq cm Yes Pain Scale: 0-10 Numeric Is Patient Pain Free? 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 Morbid obesity. Rheumatoid arthritis. Infected wound. Cellulitis Plan: Wash leg with antibacterial soap clean toes and toenails well. Promogran to wound base moistened cover with Adaptic gauze tape. Apply Nestor wrap to left lower leg from toes to knees. Follow-up in 1 week
== END 2020-07-17 23:59 ==
LOC: WC 10:30
PROVIDERS: PCP Internal Medicine; Referring Provider Nurse Practitioner; Visit Provider Nurse Practitioner
DX: S81.802A Unspecified open wound, left lower leg, initial encounter (principal); S80.12XA Contusion of left lower leg, initial encounter; W22.03XA Walked into furniture, initial encounter; Y92.9 Unspecified place or not applicable; Y99.9 Unspecified external cause status; L03.116 Cellulitis of left lower limb; M06.9 Rheumatoid arthritis, unspecified; E66.01 Morbid (severe) obesity due to excess calories; R60.0 Localized edema
CPT/HCPCS: 11042

== ENCOUNTER 2020-08-16 10:30 | Outpatient (RCR) | payer MEDICARE, SELFPAY ==
[2020-07-18 00:39] VITALS: BP 152/62; PULSE 94; RESP 18; TEMP 36.6
[2020-07-19 08:16] VITALS: BP 124/54; PULSE 93; RESP 18; TEMP 36.1; BMI 53.8
--- NOTE | 2020-07-19 08:21 | WC ---
Pt [id number] 8 days ago pt in ED for IV ATB for pneumonia. t5hen oral 7 days
--- NOTE | 2020-07-19 08:40 | PCM.WC.PN ---
(1) Morbid obesity Status: Acute Current Visit: Yes Code(s): E66.01 - Morbid (severe) obesity due to excess calories (2) Nonhealing nonsurgical wound Status: Acute Current Visit: Yes Code(s): T14.8XXA - Other injury of unspecified body region, initial encounter (3) Traumatic hematoma of left lower leg Status: Acute Current Visit: Yes Qualifiers: Code(s): S80.12XA - Contusion of left lower leg, initial encounter (4) Traumatic open wound of left lower leg Status: Acute Current Visit: Yes Qualifiers: Code(s): S81.802A - Unspecified open wound, left lower leg, initial encounter (5) Chronic wound of extremity Status: Chronic Current Visit: Yes Type of Wound Date of Service: 07/19/20 Chief Complaint: Follow-up open wound left lower leg History of Wound: 64-year-old white female that was pushing a chair and the chair hit her left lynch area about 5 weeks ago. Developed a huge hematoma and then blistering around with some cellulitis. Seen by her family doctor and they opened the hematoma and all the blisters. Patient was started on Augmentin and covered with gauze. Patient is here because wound is not healing properly Progress of Wound: Cultures came back staph aureus and anaerobes cocci so patient was started on clindamycin and metronidazole. Seeing an improvement tolerating her medications well. We will change to Promogran to finish wound care, Adaptic with gauze dressing , continue compression and follow-up again in another week. Has been absent for 2 weeks because of pneumonia patient just finished Levaquin. Area looks good about the same size as last time less depth Promogran working well - Physical Exam Vital Signs Temp Pulse Resp BP 97 F L 93 18 124/54 H 07/19/20 08:16 07/19/20 08:16 07/19/20 08:16 07/19/20 08:16 General: Oriented x3, Cooperative, Well developed HEENT: Atraumatic, PERRLA Oral: Moist Mucosa Neck: Supple, No JVD Lungs: Clear to auscultation, Normal air movement Cardiovascular: Regular rate, Regular Rhythm Abdomen: Bowel Sounds Present, Soft, Non Tender, No Hepato-splenomegaly Extremities: No clubbing, No edema Skin: Ulcer/ Wound - Traumatic wound left lower leg lynch Wound Measurements and Assessment WC - Nurse 1 - General Ulcer Measurement Start: 07/19/20 08:16 Freq: Status: Active Protocol: Activity Type Activity Date Activity User E-Sign Co-Sign Detail Recorded Client Recorded Date Recorded By Document 07/19/20 08:16 RB [id number] 07/19/20 08:22 RB 07/19/20 08:16 Wound Center Nurse 1 [Ulcer Assessment] 1. L lynch cluster -Combined with other wound No -Current Size (cm) - Length 1.8 -Current Size (cm) - Width 2 -Current Size (cm) - Depth 0.2 -Total Square Cm 3.6 -Tunneling No -Undermining/Tunneling No -Circular Undermining No -Exudate Amt Small -Exudate Type Serosanguineous -Wound Margin Flat & Intact -Granulation Amt Medium (34-66%) -Granulation Quality [place] -Slough/Fibrin Yes -Necrosis Amt Small (1-33%) -Necrotic Tissue Type Adherent Slough -Structure Exposed N/A -Texture (Geraldine-wound Skin Appearance) Assessed -Moisture (Geraldine-wound Skin Appearance Assessed ) -Color (Geraldine-wound Skin Appearance) Assessed -Temperature (Geraldine-wound Skin No Abnormality Appearance) (Pt Warm) -Tenderness on Palpation (Geraldine-wound No Skin Appearance) -Ulcer Cleansing Wound Cleanser -Foul Odor after Cleansing No -Anesthetic Used 4% Lidocaine Solution [Edema Assessment] -Lower Limb Edema Present Yes -Left Calf (cm) 47.7 -Left Ankle (cm) 27.8 07/19/20 08:21 Wound Center by Alona Leung Pt [id number] 8 days ago pt in ED for IV ATB for pneumonia. t5hen oral 7 days Initialized on 07/19/20 08:21 - END OF NOTE WC - Nurse 2 - General Ulcer CM Notes Start: 07/19/20 08:16 Freq: Status: Active Protocol: Activity Type Activity Date Activity User E-Sign Co-Sign Detail Recorded Client Recorded Date Recorded By Document 07/19/20 08:31 MW [id number] 07/19/20 08:35 MW 07/19/20 08:31 Wound Center Nurse 2 [Procedure/Treatment] 1. L lynch cluster -Time 08:33 -Correct Patient Yes -Correct Side, Site, Position Yes -Correct Procedure Yes -Procedure Performed Yes -Type of Procedure Debridement -Clinical Debridement Subcutaneous -Tissue Removed Subcutaneous -Post Debridement (cm) - Length 2.0 -Post Debridement (cm) - Width 2.0 -Post Debridement (cm) - Depth 0.2 -Total Square (Post) (cm) 4.00 -Area of Debridement (cm) - Length 2.0 -Area of Debridement (cm) - Width 2.0 -Total Square (Area) (cm) 4.00 -Tunneling No -Undermining/Tunneling No -Circular Undermining No -Wound/Ulcer Outcome Not Healed -Ulcer Cleansing Rinsed/ Irrigated with Saline -Foul Odor after Cleansing No -Bioengineered Tissue No -Bleeding Controlled with Pressure -Offloading No -Debridement - Subq, 1st 20sq cm Yes [See Physician Procedure note for Specifics] Pain Scale: 0-10 Numeric [Pain] -Is Patient Pain Free? Yes Musculoskeletal: No Tenderness to Palpation of Joints or Extremities Lymphatic: No Cervical, Supraclavicular, or Inguinal Adenopathy Neurological: Cranial nerves II-XII grossly intact, Neuro grossly intact Psych/Mental Status: Normal Affect, Appropriate Debridement Note Post-Debridement Measurements/Treatment WC - Nurse 2 - General Ulcer CM Notes Start: 07/19/20 08:16 Freq: Status: Active Protocol: Activity Type Activity Date Activity User E-Sign Co-Sign Detail Recorded Client Recorded Date Recorded By Document 07/19/20 08:31 MW [id number] 07/19/20 08:35 MW 07/19/20 08:31 Wound Center Nurse 2 1. L lynch cluster -Time 08:33 -Correct Patient Yes -Correct Side, Site, Position Yes -Correct Procedure Yes -Procedure Performed Yes -Type of Procedure Debridement -Clinical Debridement Subcutaneous -Tissue Removed Subcutaneous -Post Debridement (cm) - Length 2.0 -Post Debridement (cm) - Width 2.0 -Post Debridement (cm) - Depth 0.2 -Total Square (Post) (cm) 4.00 -Area of Debridement (cm) - Length 2.0 -Area of Debridement (cm) - Width 2.0 -Total Square (Area) (cm) 4.00 -Tunneling No -Undermining/Tunneling No -Circular Undermining No -Wound/Ulcer Outcome Not Healed -Ulcer Cleansing Rinsed/ Irrigated with Saline -Foul Odor after Cleansing No -Bioengineered Tissue No -Bleeding Controlled with Pressure -Offloading No -Debridement - Subq, 1st 20sq cm Yes Pain Scale: 0-10 Numeric Is Patient Pain Free? Yes Wound debrided: Left lynch wound Type of Debridement: Excisional debridement Anesthesia Used: 5% Lidocaine Gel Depth: Down to and including healthy tissue, in the subcutaneous layer Percentage of wound debrided: 100 Instrument Used: 3mm curette Tissue Removed: Fibrin and some devitalized tissue Severity: Fat Layer Exposed Bleeding Controlled with: Compression and gauze Patient tolerated procedure well Assessment/Plan Active Problems Traumatic open wound of left lower leg (Acute) Traumatic hematoma of left lower leg (Acute) Nonhealing nonsurgical wound (Acute) Morbid obesity (Acute) Chronic wound of extremity (Chronic) Assessment: Chronic traumatic hematoma with blisters. Chronic nonhealing open wound. Morbid obesity. Rheumatoid arthritis. Infected wound resolved. Cellulitis Plan: Wash leg with antibacterial soap clean toes and toenails well. Promogran to wound base moistened cover with Adaptic gauze tape. Apply Nestor wrap to left lower leg from toes to knees. Follow-up in 1 week
[2020-07-26 10:38] VITALS: BP 138/63; PULSE 103; RESP 20; TEMP 36; BMI 53.8
--- NOTE | 2020-07-26 11:12 | PCM.WC.PN ---
(1) Morbid obesity Status: Acute Current Visit: Yes Code(s): E66.01 - Morbid (severe) obesity due to excess calories (2) Nonhealing nonsurgical wound Status: Acute Current Visit: Yes Code(s): T14.8XXA - Other injury of unspecified body region, initial encounter (3) Traumatic hematoma of left lower leg Status: Acute Current Visit: Yes Qualifiers: Code(s): S80.12XA - Contusion of left lower leg, initial encounter (4) Traumatic open wound of left lower leg Status: Acute Current Visit: Yes Qualifiers: Code(s): S81.802A - Unspecified open wound, left lower leg, initial encounter (5) Chronic wound of extremity Status: Chronic Current Visit: Yes Type of Wound Date of Service: 07/26/20 Chief Complaint: Follow-up open wound left lower leg History of Wound: 64-year-old white female that was pushing a chair and the chair hit her left lynch area about 5 weeks ago. Developed a huge hematoma and then blistering around with some cellulitis. Seen by her family doctor and they opened the hematoma and all the blisters. Patient was started on Augmentin and covered with gauze. Patient is here because wound is not healing properly Progress of Wound: Cultures came back staph aureus and anaerobes cocci so patient was started on clindamycin and metronidazole. Seeing an improvement tolerating her medications well. We will change to Promogran to finish wound care, Adaptic with gauze dressing , continue compression and follow-up again in another week. Has been absent for 2 weeks because of pneumonia patient just finished Levaquin. Area looks good about the same size as last time less depth Promogran working well. Patient states was hospitalized again this last week for 4 days for low blood pressure and dehydration was in [facility] hydration and took her off her blood pressure pills appears well wound is smaller tolerating the Promogran well healing good we will continue with Promogran and follow-up in 1 week - Physical Exam Vital Signs Temp Pulse Resp BP 96.8 F L 103 H 20 H 138/63 H 07/26/20 10:38 07/26/20 10:38 07/26/20 10:38 07/26/20 10:38 General: Oriented x3, Cooperative, Well developed HEENT: Atraumatic, PERRLA Oral: Moist Mucosa Neck: Supple, No JVD Lungs: Clear to auscultation, Normal air movement Cardiovascular: Regular rate, Regular Rhythm Abdomen: Bowel Sounds Present, Soft, Non Tender, No Hepato-splenomegaly Extremities: No clubbing, No edema Skin: Ulcer/ Wound - Left lynch wound from trauma Wound Measurements and Assessment WC - Nurse 1 - General Ulcer Measurement Start: 07/19/20 08:16 Freq: Status: Active Protocol: Activity Type Activity Date Activity User E-Sign Co-Sign Detail Recorded Client Recorded Date Recorded By Document 07/26/20 10:38 BMF [id number] 07/26/20 10:46 BMF 07/26/20 10:38 Wound Center Nurse 1 [Ulcer Assessment] 1. L lynch cluster -Combined with other wound No -Current Size (cm) - Length 2.1 -Current Size (cm) - Width 1.6 -Current Size (cm) - Depth 0.3 -Total Square Cm 3.36 -Photo Taken No -Epithelialization None Present -Tunneling No -Undermining/Tunneling No -Circular Undermining No -Exudate Amt Small -Exudate Type Serosanguineous -Wound Margin Distinct, Outline Attached -Granulation Amt Large (67-100%) -Granulation Quality Red -Slough/Fibrin Yes -Necrosis Amt Small (1-33%) -Necrotic Tissue Type Adherent Slough -Texture (Geraldine-wound Skin Appearance) Assessed, Scarring -Moisture (Geraldine-wound Skin Appearance Assessed ) -Color (Geraldine-wound Skin Appearance) Assessed -Temperature (Geraldine-wound Skin No Abnormality Appearance) (Pt Warm) -Tenderness on Palpation (Geraldine-wound No Skin Appearance) -Ulcer Cleansing Rinsed/ Irrigated with Saline -Foul Odor after Cleansing No -Anesthetic Used 5% Lidocaine Gel [Edema Assessment] -Lower Limb Edema Present Yes -Left Calf (cm) 44 -Left Ankle (cm) 27 WC - Nurse 2 - General Ulcer CM Notes Start: 07/19/20 08:16 Freq: Status: Active Protocol: Activity Type Activity Date Activity User E-Sign Co-Sign Detail Recorded Client Recorded Date Recorded By Document 07/26/20 10:58 MW [id number] 07/26/20 11:00 MW 07/26/20 10:58 Wound Center Nurse 2 [Procedure/Treatment] 1. L lynch cluster -Time 10:58 -Correct Patient Yes -Correct Side, Site, Position Yes -Correct Procedure Yes -Procedure Performed Yes -Type of Procedure Debridement -Clinical Debridement Subcutaneous -Tissue Removed Subcutaneous -Post Debridement (cm) - Length 1.5 -Post Debridement (cm) - Width 1.9 -Post Debridement (cm) - Depth 0.2 -Total Square (Post) (cm) 2.85 -Area of Debridement (cm) - Length 1.5 -Area of Debridement (cm) - Width 1.9 -Total Square (Area) (cm) 2.85 -Tunneling No -Undermining/Tunneling No -Circular Undermining No -Wound/Ulcer Outcome Not Healed -Ulcer Cleansing Rinsed/ Irrigated with Saline -Foul Odor after Cleansing No -Bioengineered Tissue No -Bleeding Controlled with Pressure -Offloading No -Treatment Response Procedure Tolerated Well -Debridement - Subq, 1st 20sq cm Yes [See Physician Procedure note for Specifics] Pain Scale: 0-10 Numeric [Pain] -Is Patient Pain Free? Yes - Nurse 3 - General Ulcer D/C NN Start: 07/19/20 08:16 Freq: Status: Active Protocol: Activity Type Activity Date Activity User E-Sign Co-Sign Detail Recorded Client Recorded Date Recorded By Document 07/26/20 11:01 MW [id number] 07/26/20 11:02 MW 07/26/20 11:01 Wound Care Nurse 3 [Wound Dressing] 1. L lynch cluster -Ulcer Cleansing Rinsed/ Irrigated with Saline -Foul Odor after Cleansing No -Negative Pressure Wound Therapy N/A -Primary Dressing Applied NonAdherent Contact Layer, Promogran -Primary Dressing Covered/Secured Dry Gauze & with Roll Gauze, Secured with Tape -Promogran 1 [Compression Applied] Left -Lotion applied to leg before No compression wrap -Tubular Bandage Single Layer -Size of Tubigrip Used Size E -Size E ($) 1 [Post Procedure Tolerated] -Treatment Response Procedure Tolerated Well Pain Scale: 0-10 Numeric [Pain] -Is Patient Pain Free? Yes Teaching: Wound Center [Wound Center Education] (Items with an * have Printed Materials Available- Please identify what is given to patient under the Teaching materials given to patient and caregiver Section. Dressing Your Wound -Person Taught Patient -Teaching Method Discussion -Response to teaching Verbalize understanding WC - Visit Discharge [Visit Discharge Information] -Discharge Condition Stable -Ambulatory Status Ambulatory -Transportation Private Auto -Accompanied by self -Medication Reconcilliation completed No & provided to patient/care provider -Clinical Summary of Care Provided Yes Musculoskeletal: No Tenderness to Palpation of Joints or Extremities Lymphatic: No Cervical, Supraclavicular, or Inguinal Adenopathy Neurological: Cranial nerves II-XII grossly intact, Neuro grossly intact Psych/Mental Status: Normal Affect, Appropriate Debridement Note Post-Debridement Measurements/Treatment WC - Nurse 2 - General Ulcer CM Notes Start: 07/19/20 08:16 Freq: Status: Active Protocol: Activity Type Activity Date Activity User E-Sign Co-Sign Detail Recorded Client Recorded Date Recorded By Document 07/19/20 08:31 MW [id number] 07/19/20 08:35 MW Document 07/26/20 10:58 MW [id number] 07/26/20 11:00 MW 07/19/20 07/26/20 08:31 10:58 Wound Center Nurse 2 Linette Adolfo lynch cluster -Time 08:33 10:58 -Correct Patient Yes Yes -Correct Side, Site, Position Yes Yes -Correct Procedure Yes Yes -Procedure Performed Yes Yes -Type of Procedure Debridement Debridement -Clinical Debridement Subcutaneous Subcutaneous -Tissue Removed Subcutaneous Subcutaneous -Post Debridement (cm) - Length 2.0 1.5 -Post Debridement (cm) - Width 2.0 1.9 -Post Debridement (cm) - Depth 0.2 0.2 -Total Square (Post) (cm) 4.00 2.85 -Area of Debridement (cm) - Length 2.0 1.5 -Area of Debridement (cm) - Width 2.0 1.9 -Total Square (Area) (cm) 4.00 2.85 -Tunneling No No -Undermining/Tunneling No No -Circular Undermining No No -Wound/Ulcer Outcome Not Healed Not Healed -Ulcer Cleansing Rinsed/ Rinsed/ Irrigated with Irrigated with Saline Saline -Foul Odor after Cleansing No No -Bioengineered Tissue No No -Bleeding Controlled with Pressure Pressure -Offloading No No -Treatment Response Procedure Tolerated Well -Debridement - Subq, 1st 20sq cm Yes Yes Pain Scale: 0-10 Numeric Is Patient Pain Free? Yes Yes BRUNO - Nurse 3 - General Ulcer D/C NN Start: 07/19/20 08:16 Freq: Status: Active Protocol: Activity Type Activity Date Activity User E-Sign Co-Sign Detail Recorded Client Recorded Date Recorded By Document 07/19/20 08:35 MW [id number] 07/19/20 08:44 MW Document 07/26/20 11:01 MW [id number] 07/26/20 11:02 MW 07/19/20 07/26/20 08:35 11:01 Wound Care Nurse 3 1. L lynch cluster -Ulcer Cleansing Rinsed/ Rinsed/ Irrigated with Irrigated with Saline Saline -Foul Odor after Cleansing No No -Negative Pressure Wound Therapy N/A N/A -Primary Dressing Applied NonAdherent NonAdherent Contact Layer, Contact Layer, Promogran Promogran -Primary Dressing Covered/Secured with Dry Gauze & Dry Gauze & Roll Gauze, Roll Gauze, Secured with Secured with Tape Tape -Promogran 1 1 Left -Lotion applied to leg before No No compression wrap -Tubular Bandage Single Layer Single Layer -Size of Tubigrip Used Size E Size E -Size E ($) 1 1 Treatment Response Procedure Procedure Tolerated Well Tolerated Well Pain Scale: 0-10 Numeric Is Patient Pain Free? Yes Yes Teaching: Wound Center Dressing Your Wound -Person Taught Patient Patient -Teaching Method Discussion, Discussion Demonstration -Response to teaching Verbalize Verbalize understanding understanding WC - Visit Discharge Discharge Condition Stable Stable Ambulatory Status Ambulatory,Cane Ambulatory Transportation Private Auto Private Auto Accompanied by self self Medication Reconcilliation completed & No No provided to patient/care provider Clinical Summary of Care Provided Yes Yes Wound debrided: Left lower extremity wound Type of Debridement: Excisional debridement Anesthesia Used: 5% Lidocaine Gel Depth: Down to and including healthy tissue, in the subcutaneous layer Percentage of wound debrided: 100 Instrument Used: 5mm curette Tissue Removed: Fibrin Severity: Fat Layer Exposed Amount of bleeding with debridement: Mild Bleeding Controlled with: Compression and gauze Patient tolerated procedure well Assessment/Plan Active Problems Traumatic open wound of left lower leg (Acute) Traumatic hematoma of left lower leg (Acute) Nonhealing nonsurgical wound (Acute) Morbid obesity (Acute) Chronic wound of extremity (Chronic) Assessment: Chronic traumatic hematoma with blisters. Chronic nonhealing open wound. Morbid obesity. Rheumatoid arthritis. Infected wound resolved. Cellulitis Plan: Wash leg with antibacterial soap clean toes and toenails well. Promogran to wound base moistened cover with Adaptic gauze tape. Apply Nestor wrap to left lower leg from toes to knees. Follow-up in 1 week
[2020-08-02 10:43] VITALS: BP 140/70; PULSE 103; RESP 18; TEMP 36.1; BMI 53.8
--- NOTE | 2020-08-02 11:05 | PCM.WC.PN ---
(1) Morbid obesity Status: Acute Current Visit: Yes Code(s): E66.01 - Morbid (severe) obesity due to excess calories (2) Nonhealing nonsurgical wound Status: Acute Current Visit: Yes Code(s): T14.8XXA - Other injury of unspecified body region, initial encounter (3) Traumatic hematoma of left lower leg Status: Acute Current Visit: Yes Qualifiers: Code(s): S80.12XA - Contusion of left lower leg, initial encounter (4) Traumatic open wound of left lower leg Status: Acute Current Visit: Yes Qualifiers: Code(s): S81.802A - Unspecified open wound, left lower leg, initial encounter (5) Chronic wound of extremity Status: Chronic Current Visit: Yes Type of Wound Date of Service: 08/02/20 Chief Complaint: Follow-up open wound left lower leg History of Wound: 64-year-old white female that was pushing a chair and the chair hit her left lynch area about 5 weeks ago. Developed a huge hematoma and then blistering around with some cellulitis. Seen by her family doctor and they opened the hematoma and all the blisters. Patient was started on Augmentin and covered with gauze. Patient is here because wound is not healing properly Progress of Wound: Wound is doing very well on Promogran almost closed couple more weeks no sign of infection. - Physical Exam Vital Signs Temp Pulse Resp BP 97 F L 103 H 18 140/70 H 08/02/20 10:43 08/02/20 10:43 08/02/20 10:43 08/02/20 10:43 General: Oriented x3, Cooperative, Well developed HEENT: Atraumatic, PERRLA Oral: Moist Mucosa Neck: Supple, No JVD Lungs: Clear to auscultation, Normal air movement Cardiovascular: Regular rate, Regular Rhythm Abdomen: Bowel Sounds Present, Soft, Non Tender, No Hepato-splenomegaly Extremities: No clubbing, No edema Skin: Ulcer/ Wound - Left lynch wound from trauma Wound Measurements and Assessment WC - Nurse 1 - General Ulcer Measurement Start: 07/19/20 08:16 Freq: Status: Active Protocol: Activity Type Activity Date Activity User E-Sign Co-Sign Detail Recorded Client Recorded Date Recorded By Document 08/02/20 10:43 RB [id number] 08/02/20 10:45 RB 08/02/20 10:43 Wound Center Nurse 1 [Ulcer Assessment] 1Nova Mata lynch cluster -Combined with other wound No -Current Size (cm) - Length 1.2 -Current Size (cm) - Width 1.6 -Current Size (cm) - Depth 0.2 -Total Square Cm 1.92 -Tunneling No -Undermining/Tunneling No -Circular Undermining No -Exudate Amt Small -Exudate Type Serosanguineous -Wound Margin Flat & Intact -Granulation Amt Large (67-100%) -Granulation Quality [place] -Slough/Fibrin Yes -Necrosis Amt Small (1-33%) -Necrotic Tissue Type Adherent Slough -Structure Exposed N/A -Texture (Geraldine-wound Skin Appearance) Assessed, Scarring -Moisture (Geraldine-wound Skin Appearance Assessed ) -Color (Geraldine-wound Skin Appearance) Assessed -Temperature (Geraldine-wound Skin No Abnormality Appearance) (Pt Warm) -Tenderness on Palpation (Geraldine-wound No Skin Appearance) -Ulcer Cleansing Wound Cleanser -Foul Odor after Cleansing No -Anesthetic Used 4% Lidocaine Solution [Edema Assessment] -Lower Limb Edema Present Yes -Left Calf (cm) 47 -Left Ankle (cm) 27.5 WC - Nurse 2 - General Ulcer CM Notes Start: 07/19/20 08:16 Freq: Status: Active Protocol: Activity Type Activity Date Activity User E-Sign Co-Sign Detail Recorded Client Recorded Date Recorded By Document 08/02/20 10:52 MW [id number] 08/02/20 10:54 MW 08/02/20 10:52 Wound Center Nurse 2 [Procedure/Treatment] Linette Mata lynch cluster -Time 10:54 -Correct Patient Yes -Correct Side, Site, Position Yes -Correct Procedure Yes -Procedure Performed Yes -Type of Procedure Debridement -Clinical Debridement Subcutaneous -Tissue Removed Subcutaneous -Post Debridement (cm) - Length 1.2 -Post Debridement (cm) - Width 1.4 -Post Debridement (cm) - Depth 0.1 -Total Square (Post) (cm) 1.68 -Area of Debridement (cm) - Length 1.2 -Area of Debridement (cm) - Width 1.4 -Total Square (Area) (cm) 1.68 -Tunneling No -Undermining/Tunneling No -Circular Undermining No -Wound/Ulcer Outcome Not Healed -Ulcer Cleansing Rinsed/ Irrigated with Saline -Foul Odor after Cleansing No -Bioengineered Tissue No -Bleeding Controlled with Pressure -Offloading No -Treatment Response Procedure Tolerated Well -Debridement - Subq, 1st 20sq cm Yes [See Physician Procedure note for Specifics] Pain Scale: 0-10 Numeric [Pain] -Is Patient Pain Free? Yes - Nurse 3 - General Ulcer D/C NN Start: 07/19/20 08:16 Freq: Status: Active Protocol: Activity Type Activity Date Activity User E-Sign Co-Sign Detail Recorded Client Recorded Date Recorded By Document 08/02/20 10:54 MW [id number] 08/02/20 10:55 MW 08/02/20 10:54 Wound Care Nurse 3 [Wound Dressing] 1. L lynch cluster -Ulcer Cleansing Rinsed/ Irrigated with Saline -Foul Odor after Cleansing No -Negative Pressure Wound Therapy N/A -Primary Dressing Applied NonAdherent Contact Layer, Promogran -Primary Dressing Covered/Secured Dry Gauze & with Roll Gauze -Promogran 1 [Post Procedure Tolerated] -Treatment Response Procedure Tolerated Well Pain Scale: 0-10 Numeric [Pain] -Is Patient Pain Free? Yes Teaching: Wound Center [Wound Center Education] (Items with an * have Printed Materials Available- Please identify what is given to patient under the Teaching materials given to patient and caregiver Section. Dressing Your Wound -Person Taught Patient -Teaching Method Discussion -Response to teaching Verbalize understanding - Visit Discharge [Visit Discharge Information] -Discharge Condition Stable -Ambulatory Status Ambulatory -Transportation Private Auto -Accompanied by self -Medication Reconcilliation completed No & provided to patient/care provider -Clinical Summary of Care Provided Yes Musculoskeletal: No Tenderness to Palpation of Joints or Extremities Lymphatic: No Cervical, Supraclavicular, or Inguinal Adenopathy Neurological: Cranial nerves II-XII grossly intact, Neuro grossly intact Psych/Mental Status: Normal Affect, Appropriate Debridement Note Post-Debridement Measurements/Treatment WC - Nurse 2 - General Ulcer CM Notes Start: 07/19/20 08:16 Freq: Status: Active Protocol: Activity Type Activity Date Activity User E-Sign Co-Sign Detail Recorded Client Recorded Date Recorded By Document 07/19/20 08:31 MW [id number] 07/19/20 08:35 MW Document 07/26/20 10:58 MW [id number] 07/26/20 11:00 MW Document 08/02/20 10:52 MW [id number] 08/02/20 10:54 MW 07/19/20 07/26/20 08/02/20 08:31 10:58 10:52 Wound Center Nurse 2 1. L lynch cluster -Time 08:33 10:58 10:54 -Correct Patient Yes Yes Yes -Correct Side, Site, Position Yes Yes Yes -Correct Procedure Yes Yes Yes -Procedure Performed Yes Yes Yes -Type of Procedure Debridement Debridement Debridement -Clinical Debridement Subcutaneous Subcutaneous Subcutaneous -Tissue Removed Subcutaneous Subcutaneous Subcutaneous -Post Debridement (cm) - Length 2.0 1.5 1.2 -Post Debridement (cm) - Width 2.0 1.9 1.4 -Post Debridement (cm) - Depth 0.2 0.2 0.1 -Total Square (Post) (cm) 4.00 2.85 1.68 -Area of Debridement (cm) - Length 2.0 1.5 1.2 -Area of Debridement (cm) - Width 2.0 1.9 1.4 -Total Square (Area) (cm) 4.00 2.85 1.68 -Tunneling No No No -Undermining/Tunneling No No No -Circular Undermining No No No -Wound/Ulcer Outcome Not Healed Not Healed Not Healed -Ulcer Cleansing Rinsed/ Rinsed/ Rinsed/ Irrigated with Irrigated with Irrigated with Saline Saline Saline -Foul Odor after Cleansing No No No -Bioengineered Tissue No No No -Bleeding Controlled with Pressure Pressure Pressure -Offloading No No No -Treatment Response Procedure Procedure Tolerated Well Tolerated Well -Debridement - Subq, 1st 20sq cm Yes Yes Yes Pain Scale: 0-10 Numeric Is Patient Pain Free? Yes Yes Yes WC - Nurse 3 - General Ulcer D/C NN Start: 07/19/20 08:16 Freq: Status: Active Protocol: Activity Type Activity Date Activity User E-Sign Co-Sign Detail Recorded Client Recorded Date Recorded By Document 07/19/20 08:35 MW [id number] 07/19/20 08:44 MW Document 07/26/20 11:01 MW [id number] 07/26/20 11:02 MW Document 08/02/20 10:54 MW [id number] 08/02/20 10:55 MW 07/19/20 07/26/20 08/02/20 08:35 11:01 10:54 Wound Care Nurse 3 1. L lynch cluster -Ulcer Cleansing Rinsed/ Rinsed/ Rinsed/ Irrigated with Irrigated with Irrigated with Saline Saline Saline -Foul Odor after Cleansing No No No -Negative Pressure Wound Therapy N/A N/A N/A -Primary Dressing Applied NonAdherent NonAdherent NonAdherent Contact Layer, Contact Layer, Contact Layer, Promogran Promogran Promogran -Primary Dressing Covered/Secured with Dry Gauze & Dry Gauze & Dry Gauze & Roll Gauze, Roll Gauze, Roll Gauze Secured with Secured with Tape Tape -Promogran 1 1 1 Left -Lotion applied to leg before No No compression wrap -Tubular Bandage Single Layer Single Layer -Size of Tubigrip Used Size E Size E -Size E ($) 1 1 Treatment Response Procedure Procedure Procedure Tolerated Well Tolerated Well Tolerated Well Pain Scale: 0-10 Numeric Is Patient Pain Free? Yes Yes Yes Teaching: Wound Center Dressing Your Wound -Person Taught Patient Patient Patient -Teaching Method Discussion, Discussion Discussion Demonstration -Response to teaching Verbalize Verbalize Verbalize understanding understanding understanding WC - Visit Discharge Discharge Condition Stable Stable Stable Ambulatory Status Ambulatory,Cane Ambulatory Ambulatory Transportation Private Auto Private Auto Private Auto Accompanied by self self self Medication Reconcilliation completed & No No No provided to patient/care provider Clinical Summary of Care Provided Yes Yes Yes Wound debrided: Left lynch wound Type of Debridement: Excisional debridement Anesthesia Used: 5% Lidocaine Gel Depth: Down to and including healthy tissue, in the subcutaneous layer Percentage of wound debrided: 100 Instrument Used: 5mm curette Tissue Removed: DeVitalized tissue and fibrin Severity: Limited To Skin Breakdown Amount of bleeding with debridement: Mild Bleeding Controlled with: Compression and gauze Patient tolerated procedure well Assessment/Plan Active Problems Traumatic open wound of left lower leg (Acute) Traumatic hematoma of left lower leg (Acute) Nonhealing nonsurgical wound (Acute) Morbid obesity (Acute) Chronic wound of extremity (Chronic) Assessment: Chronic traumatic hematoma with blisters. Chronic nonhealing open wound. Morbid obesity. Rheumatoid arthritis. Infected wound resolved. Cellulitis Plan: Wash leg with antibacterial soap clean toes and toenails well. Promogran to wound base moistened cover with Adaptic gauze tape. Apply Nestor wrap to left lower leg from toes to knees. Follow-up in 1 week
[2020-08-09 10:21] VITALS: BP 158/72; PULSE 101; RESP 20; TEMP 36.9; BMI 53.8
[2020-08-09 11:05] VITALS: BP 121/65; PULSE 92; RESP 18; TEMP 36.8
--- NOTE | 2020-08-09 11:52 | PCM.WC.PN ---
(1) Morbid obesity Status: Acute Current Visit: Yes Code(s): E66.01 - Morbid (severe) obesity due to excess calories (2) Nonhealing nonsurgical wound Status: Acute Current Visit: Yes Code(s): T14.8XXA - Other injury of unspecified body region, initial encounter (3) Traumatic hematoma of left lower leg Status: Acute Current Visit: Yes Qualifiers: Code(s): S80.12XA - Contusion of left lower leg, initial encounter (4) Traumatic open wound of left lower leg Status: Acute Current Visit: Yes Qualifiers: Code(s): S81.802A - Unspecified open wound, left lower leg, initial encounter (5) Chronic wound of extremity Status: Chronic Current Visit: Yes Type of Wound Date of Service: 08/09/20 Chief Complaint: Follow-up open wound left lower leg History of Wound: 64-year-old white female that was pushing a chair and the chair hit her left lynch area about 5 weeks ago. Developed a huge hematoma and then blistering around with some cellulitis. Seen by her family doctor and they opened the hematoma and all the blisters. Patient was started on Augmentin and covered with gauze. Patient is here because wound is not healing properly Progress of Wound: Wound is doing very well on Promogran almost closed . Given a couple more weeks no sign of infection. - Physical Exam Vital Signs Temp Pulse Resp BP 98.2 F 92 18 121/65 H 08/09/20 11:05 08/09/20 11:05 08/09/20 11:05 08/09/20 11:05 General: Oriented x3, Cooperative, Well developed HEENT: Atraumatic, PERRLA Oral: Moist Mucosa Neck: Supple, No JVD Lungs: Clear to auscultation, Normal air movement Cardiovascular: Regular rate, Regular Rhythm Abdomen: Bowel Sounds Present, Soft, Non Tender, No Hepato-splenomegaly Extremities: No clubbing, No edema Skin: Ulcer/ Wound - Left lower lynch Wound Measurements and Assessment WC - Nurse 1 - General Ulcer Measurement Start: 07/19/20 08:16 Freq: Status: Active Protocol: Activity Type Activity Date Activity User E-Sign Co-Sign Detail Recorded Client Recorded Date Recorded By Document 08/09/20 10:21 MN [id number] 08/09/20 10:34 MN 08/09/20 10:21 Wound Center Nurse 1 [Ulcer Assessment] Linette lynch cluster -Combined with other wound No -Current Size (cm) - Length 0.6 -Current Size (cm) - Width 1 -Current Size (cm) - Depth 0.1 -Total Square Cm 0.6 -Tunneling No -Undermining/Tunneling No -Circular Undermining No -Exudate Amt Small -Exudate Type Serosanguineous -Wound Margin Flat & Intact -Granulation Amt Medium (34-66%) -Granulation Quality [place] -Slough/Fibrin No -Necrosis Amt None Present (0 %) -Structure Exposed N/A -Texture (Grealdine-wound Skin Appearance) Assessed -Moisture (Geraldine-wound Skin Appearance Assessed ) -Color (Geraldine-wound Skin Appearance) Assessed, Ecchymosis -Temperature (Geraldine-wound Skin No Abnormality Appearance) (Pt Warm) -Tenderness on Palpation (Geraldine-wound No Skin Appearance) -Ulcer Cleansing Wound Cleanser -Foul Odor after Cleansing No -Anesthetic Used 5% Lidocaine Gel [Edema Assessment] -Lower Limb Edema Present Yes -Left Calf (cm) 46 -Left Ankle (cm) 28.5 WC - Nurse 2 - General Ulcer CM Notes Start: 07/19/20 08:16 Freq: Status: Active Protocol: Activity Type Activity Date Activity User E-Sign Co-Sign Detail Recorded Client Recorded Date Recorded By Document 08/09/20 10:57 MW [id number] 08/09/20 10:59 MW 08/09/20 10:57 Wound Center Nurse 2 [Procedure/Treatment] Linette lynch cluster -Time 10:58 -Correct Patient Yes -Correct Side, Site, Position Yes -Correct Procedure Yes -Procedure Performed Yes -Type of Procedure Debridement -Clinical Debridement Subcutaneous -Tissue Removed Subcutaneous -Post Debridement (cm) - Length 0.8 -Post Debridement (cm) - Width 1.2 -Post Debridement (cm) - Depth 0.1 -Total Square (Post) (cm) 0.96 -Area of Debridement (cm) - Length 0.8 -Area of Debridement (cm) - Width 1.2 -Total Square (Area) (cm) 0.96 -Tunneling No -Undermining/Tunneling No -Circular Undermining No -Wound/Ulcer Outcome Not Healed -Ulcer Cleansing Rinsed/ Irrigated with Saline -Foul Odor after Cleansing No -Bioengineered Tissue No -Bleeding Controlled with Pressure -Offloading No -Treatment Response Procedure Tolerated Well -Debridement - Subq, 1st 20sq cm Yes [See Physician Procedure note for Specifics] Pain Scale: 0-10 Numeric [Pain] -Is Patient Pain Free? Yes - Nurse 3 - General Ulcer D/C NN Start: 07/19/20 08:16 Freq: Status: Active Protocol: Activity Type Activity Date Activity User E-Sign Co-Sign Detail Recorded Client Recorded Date Recorded By Document 08/09/20 11:05 MT [id number] 08/09/20 11:07 MN 08/09/20 11:05 Wound Care Nurse 3 [Wound Dressing] 1. L lynch cluster -Ulcer Cleansing Rinsed/ Irrigated with Saline -Foul Odor after Cleansing No -Primary Dressing Applied Promogran -Other Dressing adaptic -Primary Dressing Covered/Secured Dry Gauze, with Secured with Tape -Promogran 1 [Post Procedure Tolerated] -Treatment Response Procedure Tolerated Well Vital Signs [Temperature Protocol: VS] -Temperature (97.8 F-99.1 F) 98.2 F -Temperature Source Temporal [Pulse] -Pulse Rate (60-100 beats/min) 92 -Pulse Location Monitor [Respirations] -Respiratory Rate (12-18 breaths/min) 18 -Respiratory rate source Observation [Blood Pressure] -Blood Pressure (90/60-120/80 mm Hg) 121/65 H -Blood Pressure Mean (mm Hg) 83 -Source Monitor Pain Scale: 0-10 Numeric [Pain] -Is Patient Pain Free? Yes - Visit Discharge [Visit Discharge Information] -Discharge Condition Stable -Ambulatory Status Ambulatory -Transportation Private Auto -Notes: tubigrip applied per order. Musculoskeletal: No Tenderness to Palpation of Joints or Extremities Lymphatic: No Cervical, Supraclavicular, or Inguinal Adenopathy Neurological: Cranial nerves II-XII grossly intact, Neuro grossly intact Psych/Mental Status: Normal Affect, Appropriate Debridement Note Post-Debridement Measurements/Treatment WC - Nurse 2 - General Ulcer CM Notes Start: 07/19/20 08:16 Freq: Status: Active Protocol: Activity Type Activity Date Activity User E-Sign Co-Sign Detail Recorded Client Recorded Date Recorded By Document 07/19/20 08:31 MW [id number] 07/19/20 08:35 MW Document 07/26/20 10:58 MW [id number] 07/26/20 11:00 MW Document 08/02/20 10:52 MW [id number] 08/02/20 10:54 MW Document 08/09/20 10:57 MW [id number] 08/09/20 10:59 MW 07/19/20 07/26/20 08/02/20 08:31 10:58 10:52 Wound Center Nurse 2 Linette lynch cluster -Time 08:33 10:58 10:54 -Correct Patient Yes Yes Yes -Correct Side, Site, Position Yes Yes Yes -Correct Procedure Yes Yes Yes -Procedure Performed Yes Yes Yes -Type of Procedure Debridement Debridement Debridement -Clinical Debridement Subcutaneous Subcutaneous Subcutaneous -Tissue Removed Subcutaneous Subcutaneous Subcutaneous -Post Debridement (cm) - Length 2.0 1.5 1.2 -Post Debridement (cm) - Width 2.0 1.9 1.4 -Post Debridement (cm) - Depth 0.2 0.2 0.1 -Total Square (Post) (cm) 4.00 2.85 1.68 -Area of Debridement (cm) - Length 2.0 1.5 1.2 -Area of Debridement (cm) - Width 2.0 1.9 1.4 -Total Square (Area) (cm) 4.00 2.85 1.68 -Tunneling No No No -Undermining/Tunneling No No No -Circular Undermining No No No -Wound/Ulcer Outcome Not Healed Not Healed Not Healed -Ulcer Cleansing Rinsed/ Rinsed/ Rinsed/ Irrigated with Irrigated with Irrigated with Saline Saline Saline -Foul Odor after Cleansing No No No -Bioengineered Tissue No No No -Bleeding Controlled with Pressure Pressure Pressure -Offloading No No No -Treatment Response Procedure Procedure Tolerated Well Tolerated Well -Debridement - Subq, 1st 20sq cm Yes Yes Yes Pain Scale: 0-10 Numeric Is Patient Pain Free? Yes Yes Yes 08/09/20 10:57 Wound Center Nurse 2 Linette lynch cluster -Time 10:58 -Correct Patient Yes -Correct Side, Site, Position Yes -Correct Procedure Yes -Procedure Performed Yes -Type of Procedure Debridement -Clinical Debridement Subcutaneous -Tissue Removed Subcutaneous -Post Debridement (cm) - Length 0.8 -Post Debridement (cm) - Width 1.2 -Post Debridement (cm) - Depth 0.1 -Total Square (Post) (cm) 0.96 -Area of Debridement (cm) - Length 0.8 -Area of Debridement (cm) - Width 1.2 -Total Square (Area) (cm) 0.96 -Tunneling No -Undermining/Tunneling No -Circular Undermining No -Wound/Ulcer Outcome Not Healed -Ulcer Cleansing Rinsed/ Irrigated with Saline -Foul Odor after Cleansing No -Bioengineered Tissue No -Bleeding Controlled with Pressure -Offloading No -Treatment Response Procedure Tolerated Well -Debridement - Subq, 1st 20sq cm Yes Pain Scale: 0-10 Numeric Is Patient Pain Free? Yes WC - Nurse 3 - General Ulcer D/C NN Start: 07/19/20 08:16 Freq: Status: Active Protocol: Activity Type Activity Date Activity User E-Sign Co-Sign Detail Recorded Client Recorded Date Recorded By Document 07/19/20 08:35 MW [id number] 07/19/20 08:44 MW Document 07/26/20 11:01 MW [id number] 07/26/20 11:02 MW Document 08/02/20 10:54 MW [id number] 08/02/20 10:55 MW Document 08/09/20 11:05 MT [id number] 08/09/20 11:07 MT 07/19/20 07/26/20 08/02/20 08:35 11:01 10:54 Wound Care Nurse 3 1. L lynch cluster -Ulcer Cleansing Rinsed/ Rinsed/ Rinsed/ Irrigated with Irrigated with Irrigated with Saline Saline Saline -Foul Odor after Cleansing No No No -Negative Pressure Wound Therapy N/A N/A N/A -Primary Dressing Applied NonAdherent NonAdherent NonAdherent Contact Layer, Contact Layer, Contact Layer, Promogran Promogran Promogran -Other Dressing -Primary Dressing Covered/Secured with Dry Gauze & Dry Gauze & Dry Gauze & Roll Gauze, Roll Gauze, Roll Gauze Secured with Secured with Tape Tape -Promogran 1 1 1 Left -Lotion applied to leg before No No compression wrap -Tubular Bandage Single Layer Single Layer -Size of Tubigrip Used Size E Size E -Size E ($) 1 1 Treatment Response Procedure Procedure Procedure Tolerated Well Tolerated Well Tolerated Well Pain Scale: 0-10 Numeric Vital Signs Is Patient Pain Free? Yes Yes Yes Temperature (97.8 F-99.1 F) Temperature Source Pulse Rate (60-100 beats/min) Pulse Location Respiratory Rate (12-18 breaths/min) Respiratory rate source Blood Pressure (90/60-120/80 mm Hg) Blood Pressure Mean (mm Hg) Source Teaching: Wound Center Dressing Your Wound -Person Taught Patient Patient Patient -Teaching Method Discussion, Discussion Discussion Demonstration -Response to teaching Verbalize Verbalize Verbalize understanding understanding understanding WC - Visit Discharge Discharge Condition Stable Stable Stable Ambulatory Status Ambulatory,Cane Ambulatory Ambulatory Transportation Private Auto Private Auto Private Auto Accompanied by self self self Medication Reconcilliation completed & No No No provided to patient/care provider Clinical Summary of Care Provided Yes Yes Yes Notes: 08/09/20 11:05 Wound Care Nurse 3 1. L lynch cluster -Ulcer Cleansing Rinsed/ Irrigated with Saline -Foul Odor after Cleansing No -Negative Pressure Wound Therapy -Primary Dressing Applied Promogran -Other Dressing adaptic -Primary Dressing Covered/Secured with Dry Gauze, Secured with Tape -Promogran 1 Left -Lotion applied to leg before compression wrap -Tubular Bandage -Size of Tubigrip Used -Size E ($) Treatment Response Procedure Tolerated Well Pain Scale: 0-10 Numeric Vital Signs Is Patient Pain Free? Yes Temperature (97.8 F-99.1 F) 98.2 F Temperature Source Temporal Pulse Rate (60-100 beats/min) 92 Pulse Location Monitor Respiratory Rate (12-18 breaths/min) 18 Respiratory rate source Observation Blood Pressure (90/60-120/80 mm Hg) 121/65 H Blood Pressure Mean (mm Hg) 83 Source Monitor Teaching: Wound Center Dressing Your Wound -Person Taught -Teaching Method -Response to teaching WC - Visit Discharge Discharge Condition Stable Ambulatory Status Ambulatory Transportation Private Auto Accompanied by Medication Reconcilliation completed & provided to patient/care provider Clinical Summary of Care Provided Notes: tubigrip applied per order. Wound debrided: Left lower lynch traumatic wound Type of Debridement: Excisional debridement Anesthesia Used: 5% Lidocaine Gel Depth: Down to and including healthy tissue, in the subcutaneous layer Percentage of wound debrided: 100 Instrument Used: 3mm curette Tissue Removed: Devitalized tissue and fibrin Severity: Limited To Skin Breakdown Bleeding Controlled with: Pressure Patient tolerated procedure well Assessment/Plan Active Problems Traumatic open wound of left lower leg (Acute) Traumatic hematoma of left lower leg (Acute) Nonhealing nonsurgical wound (Acute) Morbid obesity (Acute) Chronic wound of extremity (Chronic) Assessment: Chronic traumatic hematoma with blisters. Chronic nonhealing open wound. Morbid obesity. Rheumatoid arthritis. Infected wound resolved. Cellulitis Plan: Wash leg with antibacterial soap clean toes and toenails well. Promogran to wound base moistened cover with Adaptic gauze tape. Apply Nestor wrap to left lower leg from toes to knees. Follow-up in 1 week
[2020-08-16 10:53] VITALS: BP 158/67; PULSE 96; RESP 18; TEMP 36.3; BMI 53.8
[2020-08-16 11:26] VITALS: BP 142/47; PULSE 97; RESP 18
--- NOTE | 2020-08-16 12:38 | PCM.WC.PN ---
(1) Morbid obesity Status: Acute Current Visit: Yes Code(s): E66.01 - Morbid (severe) obesity due to excess calories (2) Nonhealing nonsurgical wound Status: Acute Current Visit: Yes Code(s): T14.8XXA - Other injury of unspecified body region, initial encounter (3) Traumatic hematoma of left lower leg Status: Acute Current Visit: Yes Qualifiers: Code(s): S80.12XA - Contusion of left lower leg, initial encounter (4) Traumatic open wound of left lower leg Status: Acute Current Visit: Yes Qualifiers: Code(s): S81.802A - Unspecified open wound, left lower leg, initial encounter (5) Chronic wound of extremity Status: Chronic Current Visit: Yes Type of Wound Date of Service: 08/16/20 Chief Complaint: Follow-up open wound left lower leg History of Wound: 64-year-old white female that was pushing a chair and the chair hit her left lynch area about 5 weeks ago. Developed a huge hematoma and then blistering around with some cellulitis. Seen by her family doctor and they opened the hematoma and all the blisters. Patient was started on Augmentin and covered with gauze. Patient is here because wound is not healing properly Progress of Wound: Wound is doing very well on Promogran almost closed . Given a couple more weeks no sign of infection. - Physical Exam Vital Signs Temp Pulse Resp BP 97.3 F L 97 18 142/47 H 08/16/20 10:53 08/16/20 11:26 08/16/20 11:26 08/16/20 11:26 General: Oriented x3, Cooperative, Well developed HEENT: Atraumatic, PERRLA Oral: Moist Mucosa Neck: Supple, No JVD Lungs: Clear to auscultation, Normal air movement Cardiovascular: Regular rate, Regular Rhythm Abdomen: Bowel Sounds Present, Soft, Non Tender, No Hepato-splenomegaly Extremities: No clubbing, No edema Skin: Ulcer/ Wound - Traumatic wound left lynch area Wound Measurements and Assessment WC - Nurse 1 - General Ulcer Measurement Start: 07/19/20 08:16 Freq: Status: Active Protocol: Activity Type Activity Date Activity User E-Sign Co-Sign Detail Recorded Client Recorded Date Recorded By Document 08/16/20 10:53 RB [id number] 08/16/20 10:55 RB 08/16/20 10:53 Wound Center Nurse 1 [Ulcer Assessment] Linette lynch cluster -Combined with other wound No -Current Size (cm) - Length 0.4 -Current Size (cm) - Width 0.8 -Current Size (cm) - Depth 0.1 -Total Square Cm 0.32 -Tunneling No -Undermining/Tunneling No -Circular Undermining No -Exudate Amt Small -Exudate Type Serosanguineous -Wound Margin Flat & Intact -Granulation Amt Medium (34-66%) -Granulation Quality [place],Red -Slough/Fibrin Yes -Necrosis Amt Small (1-33%) -Necrotic Tissue Type Adherent Slough -Structure Exposed N/A -Texture (Geraldine-wound Skin Appearance) Assessed, Scarring -Moisture (Geraldine-wound Skin Appearance Assessed ) -Color (Geraldine-wound Skin Appearance) Assessed -Temperature (Geraldine-wound Skin No Abnormality Appearance) (Pt Warm) -Tenderness on Palpation (Geraldine-wound No Skin Appearance) -Ulcer Cleansing Wound Cleanser -Foul Odor after Cleansing No -Anesthetic Used 4% Lidocaine Solution [Edema Assessment] -Lower Limb Edema Present Yes -Left Calf (cm) 44 -Left Ankle (cm) 27.5 WC - Nurse 2 - General Ulcer CM Notes Start: 07/19/20 08:16 Freq: Status: Active Protocol: Activity Type Activity Date Activity User E-Sign Co-Sign Detail Recorded Client Recorded Date Recorded By Document 08/16/20 11:12 MW [id number] 08/16/20 11:14 MW 08/16/20 11:12 Wound Center Nurse 2 [Procedure/Treatment] Linette lynch cluster -Time 11:13 -Correct Patient Yes -Correct Side, Site, Position Yes -Correct Procedure Yes -Procedure Performed Yes -Type of Procedure Debridement -Clinical Debridement Subcutaneous -Tissue Removed Subcutaneous -Post Debridement (cm) - Length 0.5 -Post Debridement (cm) - Width 0.9 -Post Debridement (cm) - Depth 0.1 -Total Square (Post) (cm) 0.45 -Area of Debridement (cm) - Length 0.5 -Area of Debridement (cm) - Width 0.9 -Total Square (Area) (cm) 0.45 -Tunneling No -Undermining/Tunneling No -Circular Undermining No -Wound/Ulcer Outcome Not Healed -Ulcer Cleansing Rinsed/ Irrigated with Saline -Foul Odor after Cleansing No -Bioengineered Tissue No -Bleeding Controlled with Pressure -Offloading No -Treatment Response Procedure Tolerated Well -Debridement - Subq, 1st 20sq cm Yes [See Physician Procedure note for Specifics] Pain Scale: 0-10 Numeric [Pain] -Is Patient Pain Free? Yes - Nurse 3 - General Ulcer D/C NN Start: 07/19/20 08:16 Freq: Status: Active Protocol: Activity Type Activity Date Activity User E-Sign Co-Sign Detail Recorded Client Recorded Date Recorded By Document 08/16/20 11:26 [id number] 08/16/20 11:27 08/16/20 11:26 Wound Care Nurse 3 [Wound Dressing] 1. L lynch cluster -Ulcer Cleansing Not Cleansed -Foul Odor after Cleansing No -Negative Pressure Wound Therapy N/A -Primary Dressing Applied Promogran -Primary Dressing Covered/Secured Dry Gauze, with Secured with Tape -Promogran 1 [Compression Applied] Left -Tubular Bandage Single Layer -Size of Tubigrip Used Size E -Size E ($) 1 Vital Signs [Pulse] -Pulse Rate (60-100 beats/min) 97 -Pulse Location Monitor [Respirations] -Respiratory Rate (12-18 breaths/min) 18 -Respiratory rate source Observation [Blood Pressure] -Blood Pressure (90/60-120/80 mm Hg) 142/47 H -Blood Pressure Mean (mm Hg) 78 -Source Monitor -Position Sitting -Blood Pressure Location Left Forearm Pain Scale: 0-10 Numeric [Pain] -Is Patient Pain Free? Yes - Visit Discharge [Visit Discharge Information] -Discharge Condition Stable -Ambulatory Status Ambulatory,Cane -Transportation Private Auto -Accompanied by self -Medication Reconcilliation completed Yes & provided to patient/care provider -Clinical Summary of Care Provided Yes Musculoskeletal: No Tenderness to Palpation of Joints or Extremities Lymphatic: No Cervical, Supraclavicular, or Inguinal Adenopathy Neurological: Cranial nerves II-XII grossly intact, Neuro grossly intact Psych/Mental Status: Normal Affect, Appropriate Debridement Note Post-Debridement Measurements/Treatment - Nurse 2 - General Ulcer CM Notes Start: 07/19/20 08:16 Freq: Status: Active Protocol: Activity Type Activity Date Activity User E-Sign Co-Sign Detail Recorded Client Recorded Date Recorded By Document 07/19/20 08:31 MW [id number] 07/19/20 08:35 MW Document 07/26/20 10:58 MW [id number] 07/26/20 11:00 MW Document 08/02/20 10:52 MW [id number] 08/02/20 10:54 MW Document 08/09/20 10:57 MW [id number] 08/09/20 10:59 MW Document 08/16/20 11:12 MW [id number] 08/16/20 11:14 MW 07/19/20 07/26/20 08/02/20 08:31 10:58 10:52 Wound Center Nurse 2 Linette ylnch cluster -Time 08:33 10:58 10:54 -Correct Patient Yes Yes Yes -Correct Side, Site, Position Yes Yes Yes -Correct Procedure Yes Yes Yes -Procedure Performed Yes Yes Yes -Type of Procedure Debridement Debridement Debridement -Clinical Debridement Subcutaneous Subcutaneous Subcutaneous -Tissue Removed Subcutaneous Subcutaneous Subcutaneous -Post Debridement (cm) - Length 2.0 1.5 1.2 -Post Debridement (cm) - Width 2.0 1.9 1.4 -Post Debridement (cm) - Depth 0.2 0.2 0.1 -Total Square (Post) (cm) 4.00 2.85 1.68 -Area of Debridement (cm) - Length 2.0 1.5 1.2 -Area of Debridement (cm) - Width 2.0 1.9 1.4 -Total Square (Area) (cm) 4.00 2.85 1.68 -Tunneling No No No -Undermining/Tunneling No No No -Circular Undermining No No No -Wound/Ulcer Outcome Not Healed Not Healed Not Healed -Ulcer Cleansing Rinsed/ Rinsed/ Rinsed/ Irrigated with Irrigated with Irrigated with Saline Saline Saline -Foul Odor after Cleansing No No No -Bioengineered Tissue No No No -Bleeding Controlled with Pressure Pressure Pressure -Offloading No No No -Treatment Response Procedure Procedure Tolerated Well Tolerated Well -Debridement - Subq, 1st 20sq cm Yes Yes Yes Pain Scale: 0-10 Numeric Is Patient Pain Free? Yes Yes Yes 08/09/20 08/16/20 10:57 11:12 Wound Center Nurse 2 Linette lynch cluster -Time 10:58 11:13 -Correct Patient Yes Yes -Correct Side, Site, Position Yes Yes -Correct Procedure Yes Yes -Procedure Performed Yes Yes -Type of Procedure Debridement Debridement -Clinical Debridement Subcutaneous Subcutaneous -Tissue Removed Subcutaneous Subcutaneous -Post Debridement (cm) - Length 0.8 0.5 -Post Debridement (cm) - Width 1.2 0.9 -Post Debridement (cm) - Depth 0.1 0.1 -Total Square (Post) (cm) 0.96 0.45 -Area of Debridement (cm) - Length 0.8 0.5 -Area of Debridement (cm) - Width 1.2 0.9 -Total Square (Area) (cm) 0.96 0.45 -Tunneling No No -Undermining/Tunneling No No -Circular Undermining No No -Wound/Ulcer Outcome Not Healed Not Healed -Ulcer Cleansing Rinsed/ Rinsed/ Irrigated with Irrigated with Saline Saline -Foul Odor after Cleansing No No -Bioengineered Tissue No No -Bleeding Controlled with Pressure Pressure -Offloading No No -Treatment Response Procedure Procedure Tolerated Well Tolerated Well -Debridement - Subq, 1st 20sq cm Yes Yes Pain Scale: 0-10 Numeric Is Patient Pain Free? Yes Yes - Nurse 3 - General Ulcer D/C NN Start: 07/19/20 08:16 Freq: Status: Active Protocol: Activity Type Activity Date Activity User E-Sign Co-Sign Detail Recorded Client Recorded Date Recorded By Document 07/19/20 08:35 MW [id number] 07/19/20 08:44 MW Document 07/26/20 11:01 MW [id number] 07/26/20 11:02 MW Document 08/02/20 10:54 MW [id number] 08/02/20 10:55 MW Document 08/09/20 11:05 MT [id number] 08/09/20 11:07 MT Document 08/10/20 09:39 MT [id number] 08/10/20 09:40 MT Document 08/16/20 11:26 CS [id number] 08/16/20 11:27 CS 07/19/20 07/26/20 08/02/20 08:35 11:01 10:54 Wound Care Nurse 3 1. L lynch cluster -Ulcer Cleansing Rinsed/ Rinsed/ Rinsed/ Irrigated with Irrigated with Irrigated with Saline Saline Saline -Foul Odor after Cleansing No No No -Negative Pressure Wound Therapy N/A N/A N/A -Primary Dressing Applied NonAdherent NonAdherent NonAdherent Contact Layer, Contact Layer, Contact Layer, Promogran Promogran Promogran -Other Dressing -Primary Dressing Covered/Secured with Dry Gauze & Dry Gauze & Dry Gauze & Roll Gauze, Roll Gauze, Roll Gauze Secured with Secured with Tape Tape -Promogran 1 1 1 Left -Lotion applied to leg before No No compression wrap -Tubular Bandage Single Layer Single Layer -Size of Tubigrip Used Size E Size E -Size E ($) 1 1 Treatment Response Procedure Procedure Procedure Tolerated Well Tolerated Well Tolerated Well Pain Scale: 0-10 Numeric Vital Signs Is Patient Pain Free? Yes Yes Yes Temperature (97.8 F-99.1 F) Temperature Source Pulse Rate (60-100 beats/min) Pulse Location Respiratory Rate (12-18 breaths/min) Respiratory rate source Blood Pressure (90/60-120/80 mm Hg) Blood Pressure Mean (mm Hg) Source Position Blood Pressure Location Teaching: Wound Center Dressing Your Wound -Person Taught Patient Patient Patient -Teaching Method Discussion, Discussion Discussion Demonstration -Response to teaching Verbalize Verbalize Verbalize understanding understanding understanding WC - Visit Discharge Discharge Condition Stable Stable Stable Ambulatory Status Ambulatory,Cane Ambulatory Ambulatory Transportation Private Auto Private Auto Private Auto Accompanied by self self self Medication Reconcilliation completed & No No No provided to patient/care provider Clinical Summary of Care Provided Yes Yes Yes Notes: 08/09/20 08/10/20 08/16/20 11:05 09:39 11:26 Wound Care Nurse 3 1. L lynch cluster -Ulcer Cleansing Rinsed/ Not Cleansed Irrigated with Saline -Foul Odor after Cleansing No No -Negative Pressure Wound Therapy N/A -Primary Dressing Applied Promogran Promogran -Other Dressing adaptic -Primary Dressing Covered/Secured with Dry Gauze, Dry Gauze, Secured with Secured with Tape Tape -Promogran 1 1 Left -Lotion applied to leg before compression wrap -Tubular Bandage Single Layer -Size of Tubigrip Used Size E -Size E ($) 1 1 Treatment Response Procedure Tolerated Well Pain Scale: 0-10 Numeric Vital Signs Is Patient Pain Free? Yes Yes Temperature (97.8 F-99.1 F) 98.2 F Temperature Source Temporal Pulse Rate (60-100 beats/min) 92 97 Pulse Location Monitor Monitor Respiratory Rate (12-18 breaths/min) 18 18 Respiratory rate source Observation Observation Blood Pressure (90/60-120/80 mm Hg) 121/65 H 142/47 H Blood Pressure Mean (mm Hg) 83 78 Source Monitor Monitor Position Sitting Blood Pressure Location Left Forearm Teaching: Wound Center Dressing Your Wound -Person Taught -Teaching Method -Response to teaching WC - Visit Discharge Discharge Condition Stable Stable Ambulatory Status Ambulatory Ambulatory,Cane Transportation Private Auto Private Auto Accompanied by self Medication Reconcilliation completed & Yes provided to patient/care provider Clinical Summary of Care Provided Yes Notes: tubigrip applied per order. Wound debrided: Left lynch traumatic wound Type of Debridement: Excisional debridement Anesthesia Used: 5% Lidocaine Gel Depth: Down to and including healthy tissue, in the subcutaneous layer Percentage of wound debrided: 100 Instrument Used: 3mm curette Tissue Removed: Fibrin Severity: Limited To Skin Breakdown Amount of bleeding with debridement: Mild Bleeding Controlled with: Compression and gauze Patient tolerated procedure well Assessment/Plan Active Problems Traumatic open wound of left lower leg (Acute) Traumatic hematoma of left lower leg (Acute) Nonhealing nonsurgical wound (Acute) Morbid obesity (Acute) Chronic wound of extremity (Chronic) Assessment: Chronic traumatic hematoma with blisters. Chronic nonhealing open wound. Morbid obesity. Rheumatoid arthritis. Infected wound resolved. Cellulitis Plan: Wash leg with antibacterial soap clean toes and toenails well. Promogran to wound base moistened cover with Adaptic gauze tape. Apply Nestor wrap to left lower leg from toes to knees. Follow-up in 1 week
== END 2020-08-16 23:59 ==
LOC: WC 10:30
PROVIDERS: PCP Internal Medicine; Referring Provider Nurse Practitioner; Visit Provider Nurse Practitioner
DX: S80.12XA Contusion of left lower leg, initial encounter (principal); S81.802A Unspecified open wound, left lower leg, initial encounter; T14.8XXA Other injury of unspecified body region, initial encounter; E66.01 Morbid (severe) obesity due to excess calories; M06.9 Rheumatoid arthritis, unspecified; Z87.01 Personal history of pneumonia (recurrent); L03.90 Cellulitis, unspecified; W22.03XA Walked into furniture, initial encounter; Y92.9 Unspecified place or not applicable; Y99.9 Unspecified external cause status
CPT/HCPCS: 11042

== ENCOUNTER 2020-08-30 10:30 | Outpatient (RCR) | payer MEDICARE, SELFPAY ==
[2020-08-17 00:33] VITALS: BP 142/47; PULSE 97; RESP 18; TEMP 36.3
[2020-08-23 10:54] VITALS: BP 135/77; PULSE 101; RESP 18; TEMP 36.3; O2SAT 98; BMI 53.8
[2020-08-23 11:47] VITALS: BP 154/85; PULSE 90; RESP 18
--- NOTE | 2020-08-23 13:03 | PN.PCM_ITS ---
(1) Edema of left lower leg Status: Acute Current Visit: Yes Code(s): R60.0 - Localized edema (2) Morbid obesity Status: Acute Current Visit: Yes Code(s): E66.01 - Morbid (severe) obesity due to excess calories (3) Nonhealing nonsurgical wound Status: Acute Current Visit: Yes Code(s): T14.8XXA - Other injury of unspecified body region, initial encounter (4) Traumatic hematoma of left lower leg Status: Acute Current Visit: Yes Qualifiers: Code(s): S80.12XA - Contusion of left lower leg, initial encounter (5) Traumatic open wound of left lower leg Status: Acute Current Visit: Yes Qualifiers: Code(s): S81.802A - Unspecified open wound, left lower leg, initial encounter (6) Chronic wound of extremity Status: Chronic Current Visit: Yes Type of Wound Date of Service: 08/23/20 Chief Complaint: Follow-up open wound left lower leg History of Wound: 64-year-old white female that was pushing a chair and the chair hit her left lynch area about 5 weeks ago. Developed a huge hematoma and then blistering around with some cellulitis. Seen by her family doctor and they opened the hematoma and all the blisters. Patient was started on Augmentin and covered with gauze. Patient is here because wound is not healing properly Progress of Wound: Wound is doing very well post closed work try hydrogel instead of Promogran this week and see if it is close very small and superficial. - Physical Exam Vital Signs Temp Pulse Resp BP Pulse Ox 97.3 F L 90 18 154/85 H 98 08/23/20 10:54 08/23/20 11:47 08/23/20 11:47 08/23/20 11:47 08/23/20 10:54 General: Oriented x3, Cooperative, Well developed HEENT: Atraumatic, PERRLA Oral: Moist Mucosa Neck: Supple, No JVD Lungs: Clear to auscultation, Normal air movement Cardiovascular: Regular rate, Regular Rhythm Abdomen: Bowel Sounds Present, Soft, Non Tender, No Hepato-splenomegaly Extremities: No clubbing, No edema Wound Measurements and Assessment WC - Nurse 1 - General Ulcer Measurement Start: 08/23/20 10:54 Freq: Status: Active Protocol: Activity Type Activity Date Activity User E-Sign Co-Sign Detail Recorded Client Recorded Date Recorded By Document 08/23/20 10:54 MT [id number] 08/23/20 11:05 MT 08/23/20 10:54 Wound Center Nurse 1 [Ulcer Assessment] 1Nova lynch cluster -Current Size (cm) - Length 0.5 -Current Size (cm) - Width 0.9 -Current Size (cm) - Depth 0.1 -Total Square Cm 0.45 -Exudate Amt Small -Exudate Type Serosanguineous -Wound Margin Flat & Intact -Granulation Amt Large (67-100%) -Granulation Quality [place] -Necrosis Amt None Present (0 %) -Texture (Geraldine-wound Skin Appearance) Assessed -Moisture (Geraldine-wound Skin Appearance Assessed, ) Maceration -Color (Geraldine-wound Skin Appearance) Assessed, Erythema -Temperature (Geraldine-wound Skin No Abnormality Appearance) (Pt Warm) -Tenderness on Palpation (Geraldine-wound No Skin Appearance) -Ulcer Cleansing Rinsed/ Irrigated with Saline -Foul Odor after Cleansing No -Anesthetic Used 4% Lidocaine Solution [Edema Assessment] -Lower Limb Edema Present Yes -Left Calf (cm) 44 -Left Ankle (cm) 28.5 WC - Nurse 2 - General Ulcer CM Notes Start: 08/23/20 10:54 Freq: Status: Active Protocol: Activity Type Activity Date Activity User E-Sign Co-Sign Detail Recorded Client Recorded Date Recorded By Document 08/23/20 11:33 MW [id number] 08/23/20 11:34 MW 08/23/20 11:33 Wound Center Nurse 2 [Procedure/Treatment] Linette lynch cluster -Time 11:33 -Correct Patient Yes -Correct Side, Site, Position Yes -Correct Procedure Yes -Procedure Performed Yes -Type of Procedure Debridement -Clinical Debridement Subcutaneous -Tissue Removed Subcutaneous -Post Debridement (cm) - Length 0.4 -Post Debridement (cm) - Width 0.7 -Post Debridement (cm) - Depth 0.1 -Total Square (Post) (cm) 0.28 -Area of Debridement (cm) - Length 0.4 -Area of Debridement (cm) - Width 0.7 -Total Square (Area) (cm) 0.28 -Tunneling No -Undermining/Tunneling No -Circular Undermining No -Wound/Ulcer Outcome Not Healed -Ulcer Cleansing Rinsed/ Irrigated with Saline -Foul Odor after Cleansing No -Bioengineered Tissue No -Bleeding Controlled with Pressure -Offloading No -Debridement - Subq, 1st 20sq cm Yes [See Physician Procedure note for Specifics] Pain Scale: 0-10 Numeric [Pain] -Is Patient Pain Free? Yes - Nurse 3 - General Ulcer D/C NN Start: 08/23/20 10:54 Freq: Status: Active Protocol: Activity Type Activity Date Activity User E-Sign Co-Sign Detail Recorded Client Recorded Date Recorded By Document 08/23/20 11:47 WI [id number] 08/23/20 11:54 WI 08/23/20 11:47 Wound Care Nurse 3 [Wound Dressing] 1. L lynch cluster -Ulcer Cleansing Rinsed/ Irrigated with Saline -Primary Dressing Applied C Hydrogel ($) [Compression Applied] Left -Tubular Bandage Single Layer -Size of Tubigrip Used Size E -Size E ($) 1 [Post Procedure Tolerated] -Treatment Response Procedure Tolerated Well Vital Signs [Pulse] -Pulse Rate (60-100 beats/min) 90 -Pulse Location Monitor [Respirations] -Respiratory Rate (12-18 breaths/min) 18 -Respiratory rate source Observation [Blood Pressure] -Blood Pressure (90/60-120/80 mm Hg) 154/85 H -Blood Pressure Mean (mm Hg) 108 -Source Monitor -Position Semi-Fowlers -Blood Pressure Location Right Arm Pain Scale: 0-10 Numeric [Pain] -Is Patient Pain Free? Yes Teaching: Wound Center [Wound Center Education] (Items with an * have Printed Materials Available- Please identify what is given to patient under the Teaching materials given to patient and caregiver Section. Compression Wraps & Stockings -Person Taught Patient -Teaching Method Discussion, Demonstration -Response to teaching Reinforcement needed - Visit Discharge [Visit Discharge Information] -Discharge Condition Stable -Ambulatory Status Ambulatory -Transportation Private Auto -Medication Reconcilliation completed No & provided to patient/care provider -Clinical Summary of Care Provided No Musculoskeletal: No Tenderness to Palpation of Joints or Extremities Lymphatic: No Cervical, Supraclavicular, or Inguinal Adenopathy Neurological: Cranial nerves II-XII grossly intact, Neuro grossly intact Psych/Mental Status: Normal Affect, Appropriate, Alert and oriented to time, place, person, mood and affect Debridement Note Post-Debridement Measurements/Treatment WC - Nurse 2 - General Ulcer CM Notes Start: 08/23/20 10:54 Freq: Status: Active Protocol: Activity Type Activity Date Activity User E-Sign Co-Sign Detail Recorded Client Recorded Date Recorded By Document 08/23/20 11:33 MW [id number] 08/23/20 11:34 MW 08/23/20 11:33 Wound Center Nurse 2 1. L lynch cluster -Time 11:33 -Correct Patient Yes -Correct Side, Site, Position Yes -Correct Procedure Yes -Procedure Performed Yes -Type of Procedure Debridement -Clinical Debridement Subcutaneous -Tissue Removed Subcutaneous -Post Debridement (cm) - Length 0.4 -Post Debridement (cm) - Width 0.7 -Post Debridement (cm) - Depth 0.1 -Total Square (Post) (cm) 0.28 -Area of Debridement (cm) - Length 0.4 -Area of Debridement (cm) - Width 0.7 -Total Square (Area) (cm) 0.28 -Tunneling No -Undermining/Tunneling No -Circular Undermining No -Wound/Ulcer Outcome Not Healed -Ulcer Cleansing Rinsed/ Irrigated with Saline -Foul Odor after Cleansing No -Bioengineered Tissue No -Bleeding Controlled with Pressure -Offloading No -Debridement - Subq, 1st 20sq cm Yes Pain Scale: 0-10 Numeric Is Patient Pain Free? Yes WC - Nurse 3 - General Ulcer D/C NN Start: 08/23/20 10:54 Freq: Status: Active Protocol: Activity Type Activity Date Activity User E-Sign Co-Sign Detail Recorded Client Recorded Date Recorded By Document 08/23/20 11:47 MT [id number] 08/23/20 11:54 [place] 08/23/20 11:47 Wound Care Nurse 3 1. L lynch cluster -Ulcer Cleansing Rinsed/ Irrigated with Saline -Primary Dressing Applied C Hydrogel ($) Left -Tubular Bandage Single Layer -Size of Tubigrip Used Size E -Size E ($) 1 Treatment Response Procedure Tolerated Well Vital Signs Pulse Rate (60-100 beats/min) 90 Pulse Location Monitor Respiratory Rate (12-18 breaths/min) 18 Respiratory rate source Observation Blood Pressure (90/60-120/80 mm Hg) 154/85 H Blood Pressure Mean (mm Hg) 108 Source Monitor Position Semi-Fowlers Blood Pressure Location Right Arm Pain Scale: 0-10 Numeric Is Patient Pain Free? Yes Teaching: Wound Center Compression Wraps & Stockings -Person Taught Patient -Teaching Method Discussion, Demonstration -Response to teaching Reinforcement needed WC - Visit Discharge Discharge Condition Stable Ambulatory Status Ambulatory Transportation Private Auto Medication Reconcilliation completed & No provided to patient/care provider Clinical Summary of Care Provided No Wound debrided: Left lower lynch Type of Debridement: Excisional debridement Anesthesia Used: 5% Lidocaine Gel Depth: Down to and including healthy tissue Percentage of wound debrided: 100 Instrument Used: 3mm curette Tissue Removed: Fibrin Severity: Limited To Skin Breakdown Assessment/Plan Active Problems Traumatic open wound of left lower leg (Acute) Traumatic hematoma of left lower leg (Acute) Nonhealing nonsurgical wound (Acute) Morbid obesity (Acute) Edema of left lower leg (Acute) Chronic wound of extremity (Chronic) Assessment: Chronic traumatic hematoma with blisters. Chronic nonhealing open wound. Morbid obesity. Rheumatoid arthritis. Infected wound resolved. Cellulitis Plan: Wash leg with antibacterial soap clean toes and toenails well. Hydrogel to wound base cover with Adaptic gauze tape. Apply Nestor wrap to left lower leg from toes to knees. Follow-up in 1 week
[2020-08-30 11:02] VITALS: BP 160/68; PULSE 96; RESP 20; TEMP 36.4; BMI 53.8
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
== END 2020-09-05 11:11 | disposition home or self-care (01) ==
LOC: WC 10:30
PROVIDERS: PCP Internal Medicine; Referring Provider Nurse Practitioner; Visit Provider Nurse Practitioner
DX: S80.12XA Contusion of left lower leg, initial encounter (principal); E66.01 Morbid (severe) obesity due to excess calories; R60.0 Localized edema; W22.03XA Walked into furniture, initial encounter; M06.9 Rheumatoid arthritis, unspecified
CPT/HCPCS: 11042; 99213; G0463